=== PATIENT | male | born 1960 | race Caucasian/White ===

== ENCOUNTER 2016-12-04 12:49 | Inpatient (IN) ==
[2016-12-04] MEDS ORDERED: 0.9 % Sodium Chloride 1,000 ML IVC ONE (13:01)
[2016-12-04] MEDS ORDERED: 0.9 % Sodium Chloride 1,000 ML ONE (13:02)
--- NOTE | 2016-12-04 13:04 | Emergency Department Note ---
Disposition Clinical Impression: Syncope Qualifiers: Syncope type: unspecified Qualified Code(s): R55 - Syncope and collapse Acute renal failure Qualifiers: Acute renal failure type: unspecified Qualified Code(s): N17.9 - Acute kidney failure, unspecified Hypotension Qualifiers: Hypotension type: unspecified hypotension type Qualified Code(s): I95.9 - Hypotension, unspecified Disposition: Admitted As Inpatient Condition: Fair Time of Disposition: 14:24 General Adult HPI - General Chief complaint: ED General Medical Stated complaint: kidney failure Time Seen by Provider: 12/04/16 12:52 Source: patient, EMS Mode of arrival: EMS Limitations: no limitations Nursing Notes Reviewed: Yes Vital Signs Reviewed: Yes - History of Present Illness HPI Narrative: 56-year-old suffered a syncopal episode while at work today. Patient was noted to have a blood pressure of 80/42 and was found to be in renal failure at the [facility]. Patient has no history of renal failure. Patient was outside at a motocross this weekend states that he drank although he says today he hadn't or drink anything. Patient liter fluid prior to arrival and arrival here he is awake and alert. Pt Subjective Complaint: Syncope Onset (ago): Just [employer] [employer] Location: other (None) Pain Severity: moderate Improves with: nothing Worsens with: nothing Associated symptoms: Reports: denies other symptoms Treatments Prior to Arrival: none - Related Data Home Medications Medication Instructions Recorded Confirmed Amitriptyline [Elavil] 150 mg PO HS 12/04/16 12/04/16 Aspirin [Lo-Dose Aspirin EC] 81 mg PO DAILY 12/04/16 12/04/16 Atenolol [Tenormin] 75 mg PO DAILY 12/04/16 12/04/16 Atorvastatin Calcium [Lipitor] 80 mg PO HS 12/04/16 12/04/16 Carboxymethylcellulose Sodium 1 drop OP TID 12/04/16 12/04/16 [Refresh Tears] Furosemide [Lasix] 20 mg PO BID 12/04/16 12/04/16 Gabapentin [Neurontin] 1,200 mg PO BID 12/04/16 12/04/16 Insulin ASPART [NovoLOG] 10 unit SQ 1200 12/04/16 12/04/16 Insulin ASPART [Novolog Flexpen] 16 unit SQ 0800,1700 12/04/16 12/04/16 Lisinopril [Zestril] 10 mg PO DAILY 12/04/16 12/04/16 Metformin HCl [Metformin HCl ER] 2,000 mg PO QAM 12/04/16 12/04/16 Morphine Sulfate SR (12 HR) [MS 1 tab PO Q8HR 12/04/16 12/04/16 Contin] Ranitidine HCl [Acid [place]] 150 mg PO BID 12/04/16 12/04/16 Allergies Allergy/AdvReac Type Severity Reaction Status Date / Time Amoxicillin Allergy Anaphylaxis Verified 12/04/16 13:18 Erythromycin Base Allergy Anaphylaxis Verified 12/04/16 13:18 Penicillins Allergy Anaphylaxis Verified 12/04/16 13:18 pregabalin Allergy Anaphylaxis Verified 12/04/16 13:18 All systems ED: reviewed and negative except as stated. Constitutional: Denies: fever, chills, weakness, weight change Eyes: Denies: eye pain, eye discharge, vision change ENT ED: Denies: ear pain, throat pain, dental pain, hearing loss, epistaxis, congestion, dysphagia Cardiovascular: Reports: syncope. Denies: chest pain, palpitations, dyspnea on exertion, edema Respiratory: Denies: cough, dyspnea, wheezes, hemoptysis, stridor Gastrointestinal: Denies: abdominal pain, nausea, vomiting, diarrhea, constipation, hematemesis, melena, hematochezia Genitourinary: Denies: urgency, dysuria, frequency, hematuria Musculoskeletal: Denies: back pain, neck pain, arthralgia, myalgia Integumentary: Denies: rash, abrasion, lesions Neurological: Denies: headache, weakness, numbness, paresthesias, confusion, abnormal gait, vertigo Psychiatric: Denies: anxiety, depression, suicidal thoughts, homicidal thoughts , auditory hallucinations, visual hallucinations Endocrine: Denies: fatigue Hematological/Lymphatic: Denies: easy bleeding, easy bruising Allergic/Immunologic: Denies: facial swelling, urticaria Physical Exam - General Limitations: no limitations General appearance: alert, in no apparent distress - Head Head exam: atraumatic, normocephalic, normal inspection - Eye Eye exam: Present: normal appearance, PERRL, EOMI - ENT ENT exam: normal exam, normal oropharynx, mucous membranes moist - Neck Neck exam: Present: normal inspection, full ROM, trachea midline - Respiratory Respiratory exam: Present: normal lung sounds bilaterally - Cardiovascular Cardiovascular exam: Present: regular rate, normal rhythm, normal heart sounds - Abdominal Exam Abdominal exam: Present: soft, Non-Tender. Absent: tenderness, distention, guarding, rebound, rigidity - Extremities Exam Extremities exam: Present: normal inspection, full ROM. Absent: tenderness, pedal edema - Expanded Lower Extremity Exam Neurovascular/Tendon exam: Absent: motor deficit, sensory deficit, tendon deficit Gait: observed and normal - Back Exam Back exam: Present: normal inspection, full ROM. Absent: tenderness - Neurological Exam Neurological exam: Present: alert, oriented X3 - Psychiatric Psychiatric exam: Present: normal affect, normal mood - Skin Skin exam: Present: warm, dry, intact, normal color Course - Reevaluation(s) Reevaluation #1: Laboratory from the [facility] includes a calcium of 9.2 lorica 97 CO2 24 creatinine 7.67 glucose 188 potassium 5.2 sodium 135 be 143 white count of 10.5 hemoglobin 15 9 hematocrit 48.0 platelets are 205,000 CT of the head showed no evidence of intracranial hemorrhage. Unchanged subcentimeter low density area in the deep white matter of the right frontal lobe likely representing a remote lacunar infarct. EKG showed a sinus rhythm without acute change. Troponin was 0.01 PTT was 23.2, INR was 1 Time: 13:05 Reevaluation #2: 56-year-old with no previous history of renal failure who comes in after a syncopal episode with the findings of renal failure creatinine above 7. The patient's initial blood pressure was 79 over palp he was given a couple liters of fluid with improving to the low 90s systolic. Appears that he is actually volume depleted. He is on Lasix which may have dried him out too much. He states he doesn't have a history of CHF. Time: 14:22 - Consultations Consultation #1: Discussed with Kavin mcbride. Time: 14:22 Consultation #2: I discussed the case with Dr. العراقي, the patient's blood pressure has been running in the 80s. Dr. العراقي recommends fluids does not recommend pressors at this time. Patient is going to be seen by her now in the ER as we are waiting on a bed. Time: 18:02 Vital Signs Temperature 98.3 F 12/04/16 12:52 Pulse Rate 81 12/04/16 12:52 Respiratory Rate 18 12/04/16 12:52 Blood Pressure 79/49 12/04/16 12:52 O2 Sat by Pulse Oximetry 94 12/04/16 12:52 Temperature 98.3 F 12/04/16 12:52 Pulse Rate 76 12/04/16 18:13 Respiratory Rate 18 12/04/16 19:51 Blood Pressure 85/52 12/04/16 19:51 O2 Sat by Pulse Oximetry 97 12/04/16 18:13 Oxygen Delivery Oxygen Delivery Nasal Cannula Medical Decision Making - Lab Data Result diagrams: 12/04/16 16:35 12/04/16 16:35 Lab Results 12/04/16 12/04/16 12/04/16 Range/Units 16:35 16:35 16:35 WBC 13.3 H (4.3-11.1) K/mcL RBC 4.90 (4.19-5.50) M/mcL Hgb 15.4 (12.9-16.9) g/dL Hct 47.2 (37.5-50.1) % MCV 96.3 (83.0-100.0) fL MCH 31.4 (28.0-33.3) pg MCHC 32.6 (31.6-35.5) g/dL RDW 13.1 (11.5-14.5) % Plt Count 205 (140-400) K/mcL MPV 10.3 (9.4-12.4) fL Immature Gran % 0.3 (0-4) % Seg Neutrophils % 60.8 % Lymphocytes % 23.4 % Monocytes % 12.9 % Eosinophils % 2.2 % Basophils % 0.4 % Neutrophils # 8.1 (1.6-8.9) K/mcL Lymphocytes # 3.1 (0.6-4.6) K/mcL Monocytes # 1.7 H (0.0-1.3) K/mcL Eosinophils # 0.3 (0.0-0.6) K/mcL Basophils # 0.1 (0.0-0.2) K/mcL PT 10.6 (9.4-12.1) Seconds INR 1.0 APTT 27.1 (26.0-36.0) Seconds Sodium (136-145) mEq/L Potassium (3.5-4.5) mEq/L Chloride (98-109) mEq/L Carbon Dioxide (19-29) mEq/L BUN (8-26) mg/dL Creatinine (0.72-1.25) mg/dL Est GFR ( Amer) (> 60) Est GFR (Non-Af Amer) (> 60) BUN/Creatinine Ratio (6-26) Glucose (70-99) mg/dL Est Mean Plasma Glucose mg/dl Hemoglobin A1c ( - 5.6) % Calculated Osmolality (280-300) Uric Acid (3.5-7.2) mg/dL Calcium (8.6-10.8) mg/dL Magnesium 1.9 (1.6-2.6) mg/dL Creatine Kinase (30-200) Units/L Troponin I (0-0.03) ng/mL B-Natriuretic Peptide (0-100) pg/mL Triglycerides 171 H (< 150) mg/dL Cholesterol 96 (< 200) mg/dL LDL Cholesterol, Calc 32 (0-99) mg/dL VLDL Cholesterol, Calc 34 H (< 31) mg/dL HDL Cholesterol 30 L (40-59) mg/dL Cholesterol/HDL Ratio 3.2 (0-4.9) Urine Color (Yellow) Urine Clarity (Clear) Urine pH (5.0-8.0) pH Units Ur Specific [place] (1.010-1.025) Urine Protein (Neg-Trace) mg/dL Urine Glucose (UA) (Normal) mg/dL Urine Ketones (Negative) mg/dL Urine Blood (Negative) Urine Nitrite (Negative) Urine Bilirubin (Negative) Urine Urobilinogen (Normal) mg/dL Ur Leukocyte Esterase (Negative) Urine Microscopic RBC (0-3) per hpf Urine Microscopic WBC (0-3) per hpf Ur Squamous Epith Cells (None-Few) per lpf Amorphous Sediment (Few) Urine Bacteria (None-Few) per hpf Ur Culture Indicated? (NO) Urine Creatinine mg/dL Urine Sodium mEq/L Urine Opiates Screen (Loocvg=533) ng/mL Ur Barbiturates Screen (Myvgmm=664) ng/mL Ur Phencyclidine Scrn (Cutoff=25) ng/mL Ur Amphetamines Screen (Hdtnaw=0735) ng/mL U Benzodiazepines Scrn (Uchsqp=185) ng/mL Urine Cocaine Screen (Cutoff= 300) ng/mL U Marijuana (THC) Screen (Cutoff = 50) ng/mL Specimen Rejected 12/04/16 12/04/16 12/04/16 Range/Units 16:35 16:35 16:35 WBC (4.3-11.1) K/mcL RBC (4.19-5.50) M/mcL Hgb (12.9-16.9) g/dL Hct (37.5-50.1) % MCV (83.0-100.0) fL MCH (28.0-33.3) pg MCHC (31.6-35.5) g/dL RDW (11.5-14.5) % Plt Count (140-400) K/mcL MPV (9.4-12.4) fL Immature Gran % (0-4) % Seg Neutrophils % % Lymphocytes % % Monocytes % % Eosinophils % % Basophils % % Neutrophils # (1.6-8.9) K/mcL Lymphocytes # (0.6-4.6) K/mcL Monocytes # (0.0-1.3) K/mcL Eosinophils # (0.0-0.6) K/mcL Basophils # (0.0-0.2) K/mcL PT (9.4-12.1) Seconds INR APTT (26.0-36.0) Seconds Sodium 136 (136-145) mEq/L Potassium 5.2 H (3.5-4.5) mEq/L Chloride 100 (98-109) mEq/L Carbon Dioxide 24 (19-29) mEq/L BUN 47 H (8-26) mg/dL Creatinine 7.85 H (0.72-1.25) mg/dL Est GFR ( Amer) 9 L (> 60) Est GFR (Non-Af Amer) 7 L (> 60) BUN/Creatinine Ratio 6 (6-26) Glucose 84 (70-99) mg/dL Est Mean Plasma Glucose mg/dl Hemoglobin A1c ( - 5.6) % Calculated Osmolality 293 (280-300) Uric Acid 10.3 H (3.5-7.2) mg/dL Calcium 9.2 (8.6-10.8) mg/dL Magnesium (1.6-2.6) mg/dL Creatine Kinase 223 H (30-200) Units/L Troponin I 0.01 (0-0.03) ng/mL B-Natriuretic Peptide 64 (0-100) pg/mL Triglycerides (< 150) mg/dL Cholesterol (< 200) mg/dL LDL Cholesterol, Calc (0-99) mg/dL VLDL Cholesterol, Calc (< 31) mg/dL HDL Cholesterol (40-59) mg/dL Cholesterol/HDL Ratio (0-4.9) Urine Color (Yellow) Urine Clarity (Clear) Urine pH (5.0-8.0) pH Units Ur Specific [place] (1.010-1.025) Urine Protein (Neg-Trace) mg/dL Urine Glucose (UA) (Normal) mg/dL Urine Ketones (Negative) mg/dL Urine Blood (Negative) Urine Nitrite (Negative) Urine Bilirubin (Negative) Urine Urobilinogen (Normal) mg/dL Ur Leukocyte Esterase (Negative) Urine Microscopic RBC (0-3) per hpf Urine Microscopic WBC (0-3) per hpf Ur Squamous Epith Cells (None-Few) per lpf Amorphous Sediment (Few) Urine Bacteria (None-Few) per hpf Ur Culture Indicated? (NO) Urine Creatinine mg/dL Urine Sodium mEq/L Urine Opiates Screen (Kwfpjc=106) ng/mL Ur Barbiturates Screen (Chosom=820) ng/mL Ur Phencyclidine Scrn (Cutoff=25) ng/mL Ur Amphetamines Screen (Mvnxug=4843) ng/mL U Benzodiazepines Scrn (Mvlnxv=817) ng/mL Urine Cocaine Screen (Cutoff= 300) ng/mL U Marijuana (THC) Screen (Cutoff = 50) ng/mL Specimen Rejected 12/04/16 12/04/16 12/04/16 Range/Units 16:35 16:35 18:45 WBC (4.3-11.1) K/mcL RBC (4.19-5.50) M/mcL Hgb (12.9-16.9) g/dL Hct (37.5-50.1) % MCV (83.0-100.0) fL MCH (28.0-33.3) pg MCHC (31.6-35.5) g/dL RDW (11.5-14.5) % Plt Count (140-400) K/mcL MPV (9.4-12.4) fL Immature Gran % (0-4) % Seg Neutrophils % % Lymphocytes % % Monocytes % % Eosinophils % % Basophils % % Neutrophils # (1.6-8.9) K/mcL Lymphocytes # (0.6-4.6) K/mcL Monocytes # (0.0-1.3) K/mcL Eosinophils # (0.0-0.6) K/mcL Basophils # (0.0-0.2) K/mcL PT (9.4-12.1) Seconds INR APTT (26.0-36.0) Seconds Sodium (136-145) mEq/L Potassium (3.5-4.5) mEq/L Chloride (98-109) mEq/L Carbon Dioxide (19-29) mEq/L BUN (8-26) mg/dL Creatinine 7.87 H (0.72-1.25) mg/dL Est GFR ( Amer) 9 L (> 60) Est GFR (Non-Af Amer) 7 L (> 60) BUN/Creatinine Ratio (6-26) Glucose (70-99) mg/dL Est Mean Plasma Glucose 283 mg/dl Hemoglobin A1c 11.5 H ( - 5.6) % Calculated Osmolality (280-300) Uric Acid (3.5-7.2) mg/dL Calcium (8.6-10.8) mg/dL Magnesium (1.6-2.6) mg/dL Creatine Kinase (30-200) Units/L Troponin I (0-0.03) ng/mL B-Natriuretic Peptide (0-100) pg/mL Triglycerides (< 150) mg/dL Cholesterol (< 200) mg/dL LDL Cholesterol, Calc (0-99) mg/dL VLDL Cholesterol, Calc (< 31) mg/dL HDL Cholesterol (40-59) mg/dL Cholesterol/HDL Ratio (0-4.9) Urine Color (Yellow) Urine Clarity (Clear) Urine pH (5.0-8.0) pH Units Ur Specific [place] (1.010-1.025) Urine Protein (Neg-Trace) mg/dL Urine Glucose (UA) (Normal) mg/dL Urine Ketones (Negative) mg/dL Urine Blood (Negative) Urine Nitrite (Negative) Urine Bilirubin (Negative) Urine Urobilinogen (Normal) mg/dL Ur Leukocyte Esterase (Negative) Urine Microscopic RBC (0-3) per hpf Urine Microscopic WBC (0-3) per hpf Ur Squamous Epith Cells (None-Few) per lpf Amorphous Sediment (Few) Urine Bacteria (None-Few) per hpf Ur Culture Indicated? (NO) Urine Creatinine mg/dL Urine Sodium mEq/L Urine Opiates Screen Positive H (Jviaar=971) ng/mL Ur Barbiturates Screen Negative (Pnlmrd=160) ng/mL Ur Phencyclidine Scrn Negative (Cutoff=25) ng/mL Ur Amphetamines Screen Negative (Ylojrr=1031) ng/mL U Benzodiazepines Scrn Negative (Ijdadk=074) ng/mL Urine Cocaine Screen Negative (Cutoff= 300) ng/mL U Marijuana (THC) Screen Negative (Cutoff = 50) ng/mL Specimen Rejected 12/04/16 12/04/16 12/04/16 Range/Units 18:45 18:45 18:45 WBC (4.3-11.1) K/mcL RBC (4.19-5.50) M/mcL Hgb (12.9-16.9) g/dL Hct (37.5-50.1) % MCV (83.0-100.0) fL MCH (28.0-33.3) pg MCHC (31.6-35.5) g/dL RDW (11.5-14.5) % Plt Count (140-400) K/mcL MPV (9.4-12.4) fL Immature Gran % (0-4) % Seg Neutrophils % % Lymphocytes % % Monocytes % % Eosinophils % % Basophils % % Neutrophils # (1.6-8.9) K/mcL Lymphocytes # (0.6-4.6) K/mcL Monocytes # (0.0-1.3) K/mcL Eosinophils # (0.0-0.6) K/mcL Basophils # (0.0-0.2) K/mcL PT (9.4-12.1) Seconds INR APTT (26.0-36.0) Seconds Sodium (136-145) mEq/L Potassium (3.5-4.5) mEq/L Chloride (98-109) mEq/L Carbon Dioxide (19-29) mEq/L BUN (8-26) mg/dL Creatinine (0.72-1.25) mg/dL Est GFR ( Amer) (> 60) Est GFR (Non-Af Amer) (> 60) BUN/Creatinine Ratio (6-26) Glucose (70-99) mg/dL Est Mean Plasma Glucose mg/dl Hemoglobin A1c ( - 5.6) % Calculated Osmolality (280-300) Uric Acid (3.5-7.2) mg/dL Calcium (8.6-10.8) mg/dL Magnesium (1.6-2.6) mg/dL Creatine Kinase (30-200) Units/L Troponin I (0-0.03) ng/mL B-Natriuretic Peptide (0-100) pg/mL Triglycerides (< 150) mg/dL Cholesterol (< 200) mg/dL LDL Cholesterol, Calc (0-99) mg/dL VLDL Cholesterol, Calc (< 31) mg/dL HDL Cholesterol (40-59) mg/dL Cholesterol/HDL Ratio (0-4.9) Urine Color Yellow (Yellow) Urine Clarity Clear (Clear) Urine pH 5.0 (5.0-8.0) pH Units Ur Specific [place] >= 1.030 H (1.010-1.025) Urine Protein 100 H (Neg-Trace) mg/dL Urine Glucose (UA) Normal (Normal) mg/dL Urine Ketones Trace H (Negative) mg/dL Urine Blood Negative (Negative) Urine Nitrite Negative (Negative) Urine Bilirubin Small H (Negative) Urine Urobilinogen Normal (Normal) mg/dL Ur Leukocyte Esterase Negative (Negative) Urine Microscopic RBC 0-3 (0-3) per hpf Urine Microscopic WBC 0-3 (0-3) per hpf Ur Squamous Epith Cells Moderate H (None-Few) per lpf Amorphous Sediment Few (Few) Urine Bacteria Moderate H (None-Few) per hpf Ur Culture Indicated? NO (NO) Urine Creatinine 258 mg/dL Urine Sodium 21.0 mEq/L Urine Opiates Screen (Iasmql=539) ng/mL Ur Barbiturates Screen (Toddjd=475) ng/mL Ur Phencyclidine Scrn (Cutoff=25) ng/mL Ur Amphetamines Screen (Kcjmqq=1679) ng/mL U Benzodiazepines Scrn (Abjyvt=412) ng/mL Urine Cocaine Screen (Cutoff= 300) ng/mL U Marijuana (THC) Screen (Cutoff = 50) ng/mL Specimen Rejected Volume
[2016-12-04] MEDS: 0.9 % Sodium Chloride 1,000 ML IVC SCH ×2 (15:00→19:06)
[2016-12-04] MEDS ORDERED: Aspirin Enteric Coated 81 MG Tablet PO SCH (15:15)
[2016-12-04] MEDS ORDERED: Aspirin 81 MG TAB.CHEW PO STA (15:16)
[2016-12-04] MEDS ORDERED: Acetaminophen 325 MG TABLET PO PRN (15:17)
[2016-12-04] MEDS ORDERED: *HR* Morphine 2 MG/ML SYRINGE IVP PRN (15:17)
[2016-12-04] MEDS ORDERED: *HR* HYDROcodone/Acet 5/325 mg TABLET PO PRN (15:17)
[2016-12-04] MEDS ORDERED: Naloxone 0.4 MG/ML INJ IVP PRN (15:17)
[2016-12-04] MEDS ORDERED: D5% in Water 1,000 ML IVC PRN (15:33)
[2016-12-04] MEDS ORDERED: *HR* Dextrose 50 % in Water (Syg) 50 ML SYRINGE IVP PRN (15:33)
[2016-12-04] MEDS ORDERED: Dextrose Gel 15 GM PO PRN ×2 (15:33)
--- NOTE | 2016-12-04 15:36 | Internal Med History&Physical ---
<Kavin Chavez - Last Filed: 12/04/16 19:02> Date of Encounter: 12/04/16 Time of Encounter: 14:30 Assessment and Plan (1) Symptoms of cerebrovascular accident (CVA) Current visit: Yes Status: Acute Patient presents with complaint of syncope at work today. Upon admission to the ED, he was also found to have a creatinine level of 7.67 and GFR of 7. On examination, the patient is altered and slurring his speech. His reports that this is a new onset and not his baseline. CT of the head/brain taken at the [facility] today shows no extra-axial fluid collections and no evidence of intracranial hemorrhage. There is a stable subcentimeter low-density area in the deep white matter of the right frontal lobe likely representing an area of remote lacunar infarct. NIHSS protocol ordered with neuro checks, padding added to patient's bed rails, elevated HOB, PO aspirin, and NPO status until an ordered bedside swallow evaluation is passed. MRI of the head/brain w/o contrast ordered stat. Bilateral carotid Doppler duplex imaging and echocardiogram ordered stat. Will place order for neuro consult based on MRI results. Patient to be monitored closely for signs of neurological decline. (2) Syncope Current visit: Yes Status: Acute Patient presents in the ED with report of becoming syncopal at work today. The patient reports that he has not been feeling well for the past two days following a two-day event outdoors when he feels he became dehydrated. Patient to be placed as falls precautions/up with assist/bed rest with bathroom privileges with assist only due to current weakness and syncope. Orthostatic BPs and vital signs ordered. Echocardiogram and bilateral carotid Doppler duplex imaging ordered. 2L IV fluids administered in the ED and IV 0.9 NS at 100 mL/HR to be continued. Qualifiers: Syncope type: unspecified Qualified Code(s): R55 - Syncope and collapse (3) Hypotension Current visit: Yes Status: Acute Patient presents with acute hypotension of 79/36 in the ED. Patient reports that his BP normally runs 160/75 when he takes it at home. Hypotension could be due to patient's current report of dehydration as well as current CVA and orthostatic hypotension symptoms. Will monitor patient's vital signs and hold his Atenolol and lisinopril for now due to hypotension and to allow for permissive hypertension related to current CVA symptoms. Will also hold patient' s Lasix for now. Patient placed on continuous telemetry and falls/safety precautions. Qualifiers: Hypotension type: unspecified hypotension type Qualified Code(s): I95.9 - Hypotension, unspecified (4) Acute renal failure Current visit: Yes Status: Acute Patient presents with acute renal failure which he denies a previous history of. He does report that his mother had CKD but he has never had renal issues before. ARF may be due to patient's current feeling of being dehydrated. New labs ordered stat including creatinine and GFR. Patient received 2L of IV NS in the ED due to feeling dehydrated. Will continue IV fluids at 100mL/HR, monitor I &O and daily weight, and monitor renal function in follow-up labs. Will use IV fluids judiciously and hold patient's Lasix for now due to renal function and hypotension. Nephrology consult ordered and placed in the ED. Qualifiers: Acute renal failure type: unspecified Qualified Code(s): N17.9 - Acute kidney failure, unspecified (5) Generalized weakness Current visit: Yes Status: Acute Patient presents with generalized weakness for the past 48 hours. He states he was at a two-day motocross event and out in the sun. He felt as if he wasn't hydrated enough. Patient received 2L of IV fluids in the ED and will continue 0.9 NS at 100 mL/HR. Patient placed as falls precautions/up with assist/bed rest with bathroom privileges with assist only due to syncopal episode, weakness , and slightly AMS. (6) Diabetes Current visit: Yes Status: Chronic Patient presents with acute diabetes controlled with oral hypoglycemics as well as insulin. A1c ordered. Blood glucose checks ACHS. Will continue patient's schedule insulin and add low-dose correction insulin sliding scale and hypoglycemia protocol. Qualifiers: Diabetes mellitus type: type 2 Diabetes mellitus complication status: with unspecified complications Diabetes mellitus wood heel cementer insulin use: with wood heel cementer use Qualified Code(s): E11.8 - Type 2 diabetes mellitus with unspecified complications; Z79.4 - [facility] (current) use of insulin (7) HTN (hypertension) Current visit: Yes Status: Chronic Patient presents with a medical history of chronic hypertension but is currently hypotensive on this admission with BP of 76/36. Will monitor patient and vital signs and hold patient's lisinopril and atenolol due to current hypotension as well as to permit permissive hypertension based on patient's current CVA symptoms. Qualifiers: Hypertension type: essential hypertension Qualified Code(s): I10 - Essential (primary) hypertension (8) HLD (hyperlipidemia) Current visit: Yes Status: Chronic Patient presents with history of chronic hyperlipidemia. Lipid panel ordered. Will continue patient's Lipitor. Qualifiers: Hyperlipidemia type: pure hypercholesterolemia Qualified Code(s): E78.00 - Pure hypercholesterolemia, unspecified; E78.0 - Pure hypercholesterolemia (9) DVT prophylaxis Current visit: Yes Status: Acute Patient to be placed on DVT prophylaxis due to current admission protocol, symptoms, and bed rest status. Heparin 5,000 units SQ Q8 ordered. Internal Medicine - H&P: HPI Chief complaint: Syncope Admitted From: Emergency Dept Plans for Post Hospital Care: Home History of present illness: Mr. Barriga is a 56 year old male presents from the ED with chief complaint of passing out at work today. Patient reports similar symptoms happened a week to 10 days ago but did not result in syncope. On examination patient is slightly somnolent and slurring his speech which his states is not his baseline. She reports he was at a [employer] competition Saturday and Saturday in the hot sun and may become dehydrated. Saturday evening following the event, she states he became unstable and ambulation, reported tunnel vision and blurry vision, complained of extreme fatigue, and was unable to hold things in his hands. Patient appears slightly confused. [facility] without contrast showed no evidence of intracranial hemorrhage, but a stable subcentimeter low-density area in the deep white matter of the right frontal lobe likely representing a remote lacunar infarct. MRI of the head/brain without contrast ordered. Patient's past medical history includes diabetes, hypertension, hyperlipidemia, psoriasis, ulcerative colitis, diverticulosis, and renal calculi. Patient is a moderate risk for further morbidity based on current symptoms and risk factors and placed as inpatient status with orders for repeat EKG stat, echocardiogram, bilateral carotid Doppler duplex imaging, NIHSS protocol with neuro checks due to current CVA- type symptoms, continuous cardiac telemetry, supplemental O2 with continuous SaO2 monitoring, nothing by mouth status until bedside dysphagia screen passed, and falls/syncope precautions due to syncope. Aspirin therapy administered in the ED and will be continued. Upon admission, patient was hypotensive with BP of 76/36 so we will hold patient's BP medications due to current hypotension and to allow for permissive hypertension based on his CVA symptoms. Nephrology consult ordered and placed in the ED. Patient is to be monitored closely for signs of neurological decline as well as increasing cardiac and/or respiratory distress. Time spent with patient >40 minutes. Past Med Surg Social Fam HX - Past Medical History Source: patient Medical history: diabetes, hyperlipidemia, hypertension Psychiatric history: no psych history - Social History Smoking Status: Former smoker Packs per day: 1/2 PPD - Reports quitting 22 years ago Smokeless Tobacco Status: No Alcohol use: none Drug use: none Occupational status: employed Current living situation: Home, With Family Activity Level: Independent ambulation Recent Out of Country Travel Within the Last 8 Weeks: No Exposure or Possible Exposure to Illness During Travel: No - Family History Father Race: Family Member Ethnicity: Non- Living Status: Age at : 71 Cause of : Metastatic cancer Hx Family Cancer: Yes (Prostate cancer with mets) Mother Race: Family Member Ethnicity: Non- Living Status: Age at : 70 Cause of : CKD Hx Family Cardiac Disorders: Yes (HD, ME, HTN) Hx Family Genitourinary Disorders: Yes (CKD) Brother Race: Family Member Ethnicity: Non- Living Status: Age at : 22 Cause of : Accident Internal Medicine - H&P: Meds Amitriptyline [Elavil] 150 mg PO HS 12/04/16 [History] Aspirin [Lo-Dose Aspirin EC] 81 mg PO DAILY 12/04/16 [History] Atenolol [Tenormin] 75 mg PO DAILY 12/04/16 [History] Atorvastatin Calcium [Lipitor] 80 mg PO HS 12/04/16 [History] Carboxymethylcellulose Sodium [Refresh Tears] 1 drop OP TID 12/04/16 [History] Furosemide [Lasix] 20 mg PO BID 12/04/16 [History] Gabapentin [Neurontin] 1,200 mg PO BID 12/04/16 [History] Insulin ASPART [NovoLOG] 10 unit SQ 1200 12/04/16 [History] Insulin ASPART [Novolog Flexpen] 16 unit SQ 0800,1700 12/04/16 [History] Lisinopril [Zestril] 10 mg PO DAILY 12/04/16 [History] Metformin HCl [Metformin HCl ER] 2,000 mg PO QAM 12/04/16 [History] Morphine Sulfate SR (12 HR) [MS Contin] 1 tab PO Q8HR 12/04/16 [History] Ranitidine HCl [Acid Coil Connector Repairer] 150 mg PO BID 12/04/16 [History] Allergies Amoxicillin Allergy (Verified 12/04/16 13:18) Anaphylaxis Erythromycin Base Allergy (Verified 12/04/16 13:18) Anaphylaxis Penicillins Allergy (Verified 12/04/16 13:18) Anaphylaxis pregabalin Allergy (Verified 12/04/16 13:18) Anaphylaxis All Systems PM: A 10-system review of systems was performed and is negative for pertinent findings except as documented above in the HPI. - Constitutional Constitutional: as per HPI, fatigue, weakness - EENT Eyes: as per HPI, blurry vision, tunnel vision Ears: no ear discharge, no ear pain, no tinnitus Nose, mouth and throat: no dysphagia, no nasal discharge, no neck pain, no sore throat - Breasts Breasts: as per HPI - Cardiovascular Cardiovascular ROS IM: as per HPI, dyspnea on exertion, no chest pain, no diaphoresis, no dyspnea, no lightheadedness, no palpitations, no syncope - Respiratory Respiratory: no cough, no dyspnea, no wheezing, no excessive phlegm production - Gastrointestinal Gastrointestinal: no abdominal pain, no diarrhea, no hematemesis, no hematochezia, no melena, no nausea, no vomiting - Genitourinary Genitourinary ROS male: as per HPI - Musculoskeletal Musculoskeletal ROS IM: no numbness, no tingling - Integumentary Integumentary IM: no rash, no unusual bruising - Neurological Neurological ROS: abnormal gait (Unsteady gait), abnormal speech (Slurring speech since Saturday), disequilibrium, dizziness, weakness - Psychiatric Psychiatric: as per HPI, confusion - Endocrine Endocrine IM: as per HPI, fatigue - Hematologic/Lymphatic Hematologic/Lymphatic: no easy bruising - Allergic/Immunologic Allergic/Immunologic: as per HPI - Constitutional Vitals: Temp Pulse Resp BP Pulse Ox 98.3 F 82 18 90/48 97 12/04/16 12:52 12/04/16 14:13 12/04/16 14:13 12/04/16 14:13 12/04/16 14:13 General appearance: Present: cooperative, A&O X 2, morbidly obese Exam: On examination, patient appears mildly confused with slurred speech which his states is a new onset since Saturday. Patient is neurologically intact with some mild difficulty with coordination with [id number] exam. - Head Head exam: Present: atraumatic, normocephalic - Eye Eye exam: Present: PERRL, conjuntiva pink, sclera anicteric Pupils: Present: PERRL - ENT ENT exam: Present: normal exam, normal external ear exam - Neck Neck exam general surgery: Present: normal inspection, supple, trachea midline - Respiratory Respiratory exam: Present: CTAB. Absent: accessory muscle use, rales, rhonchi, wheezes - Cardiovascular Cardiovascular exam: Present: RRR, +S1, +S2. Absent: diastolic murmur, gallop, rubs, systolic murmur - GI/Abdominal GI/Abdominal exam: Present: normal bowel sounds, soft, no peritoneal signs. Absent: distended, tenderness - Rectal Rectal exam: Present: deferred - Additional comments: exam deferred. - Extremities Exam Extremities exam: Present: warm, radial pulses palpable and symmetrical. Absent : calf tenderness, cyanotic, pedal edema - Back Exam Back exam: Present: normal inspection - Neurological Exam Neurological exam: Present: altered, reflexes normal, strengths equal and symetr throughout, speech deficit (Slurring present) - Psychiatric Psychiatric exam: Present: normal affect, normal mood - Skin Skin exam: Present: dry, intact Internal Med - H&P Results - Labs CBC & Chem 7: 12/04/16 16:35 12/04/16 16:35 - EKG Data EKG shows normal: sinus rhythm Rate: normal - EKG Data Prior EKG available for review: no Interpretation IM: normal EKG EKG comments: 12/04/16 15:47 EKG dated today at the [place] shows normal sinus rhythm and normal ECG. <Mekhi Mcduffie - Last Filed: 12/04/16 19:42> Date of Encounter: 12/04/16 Internal Medicine - H&P: HPI History of present illness: Mr. Barriga is a 56 year old male All Systems PM: A 10-system review of systems was performed and is negative for pertinent findings except as documented above in the HPI. - Constitutional Vitals: Temp Pulse Resp BP Pulse Ox 98.3 F 76 18 95/62 97 12/04/16 12:52 12/04/16 18:13 12/04/16 18:13 12/04/16 18:13 12/04/16 18:13 Internal Med - H&P Results - Labs CBC & Chem 7: 12/04/16 16:35 12/04/16 16:35 - Attending Attestation I have personally performed a face to face evaluation on this patient. I have reviewed and agree with the care plan. History and Exam by me shows: Mr. Barriga is currently admitted for syncope and acute renal failure. He is feeling OK at this time, just uncomfortable with sheppard Exam Alert. Comfortable Heart reg No wheeze No edema Agree with plan as outlined above.
[2016-12-04 16:44] LABS: Basophils # 0.1 K/mcL (0.0-0.2); Basophils % 0.4 %; Eosinophils # 0.3 K/mcL (0.0-0.6); Eosinophils % 2.2 %; Hematocrit 47.2 % (37.5-50.1); Hemoglobin 15.4 g/dL (12.9-16.9); Immature Granulocytes % 0.3 % (0-4); Lymphocytes # 3.1 K/mcL (0.6-4.6); Lymphocytes % 23.4 %; Mean Corpuscular HGB Conc 32.6 g/dL (31.6-35.5); Mean Corpuscular Hemoglobin 31.4 pg (28.0-33.3); Mean Corpuscular Volume 96.3 fL (83.0-100.0); Mean Platelet Volume 10.3 fL (9.4-12.4); Monocytes # 1.7 K/mcL (0.0-1.3); Monocytes % 12.9 %; Neutrophils # 8.1 K/mcL (1.6-8.9); Platelet Count 205 K/mcL (140-400); Red Cell Distribution Width 13.1 % (11.5-14.5); Segmented Neutrophils % 60.8 %
[2016-12-04 16:49] LABS: Prothrombin Time 10.6 Seconds (9.4-12.1)
[2016-12-04 16:52] LABS: Activated Partial Thrombo Time 27.1 Seconds (26.0-36.0)
[2016-12-04 16:57] LABS: Calcium 9.2 mg/dL (8.6-10.8); Hemoglobin A1C 11.5 %; Potassium 5.2 mEq/L (3.5-4.5)
[2016-12-04 16:58] LABS: Chol/HDL Ratio 3.2 (0-4.9); Magnesium 1.9 mg/dL (1.6-2.6)
[2016-12-04] MEDS ORDERED: INSULIN ASPART 16 UNIT SQ SCH (17:00)
--- NOTE | 2016-12-04 17:40 | Nephrology Consult Note ---
<Mars Valdovinos - Last Filed: 12/04/16 20:11> Date of Encounter: 12/04/16 Medications and Allergies Amitriptyline [Elavil] 150 mg PO HS 12/04/16 [History] Aspirin [Lo-Dose Aspirin EC] 81 mg PO DAILY 12/04/16 [History] Atenolol [Tenormin] 75 mg PO DAILY 12/04/16 [History] Atorvastatin Calcium [Lipitor] 80 mg PO HS 12/04/16 [History] Carboxymethylcellulose Sodium [Refresh Tears] 1 drop OP TID 12/04/16 [History] Furosemide [Lasix] 20 mg PO BID 12/04/16 [History] Gabapentin [Neurontin] 1,200 mg PO BID 12/04/16 [History] Insulin ASPART [NovoLOG] 10 unit SQ 1200 12/04/16 [History] Insulin ASPART [Novolog Flexpen] 16 unit SQ 0800,1700 12/04/16 [History] Lisinopril [Zestril] 10 mg PO DAILY 12/04/16 [History] Metformin HCl [Metformin HCl ER] 2,000 mg PO QAM 12/04/16 [History] Morphine Sulfate SR (12 HR) [MS Contin] 1 tab PO Q8HR 12/04/16 [History] Ranitidine HCl [Acid Acetylene Cylinder Packing Mixer] 150 mg PO BID 12/04/16 [History] Amoxicillin Allergy (Verified 12/04/16 13:18) Anaphylaxis Erythromycin Base Allergy (Verified 12/04/16 13:18) Anaphylaxis Penicillins Allergy (Verified 12/04/16 13:18) Anaphylaxis pregabalin Allergy (Verified 12/04/16 13:18) Anaphylaxis Exam - Vital Signs Vital signs: Initial Vital Signs Temp Pulse Resp BP Pulse Ox 98.3 F 81 18 79/49 94 12/04/16 12:52 12/04/16 12:52 12/04/16 12:52 12/04/16 12:52 12/04/16 12:52 Vital Signs - Last 8 Hours Resp BP 12/04/16 19:51 18 85/52 Results - Lab Results 12/04/16 16:35 12/04/16 16:35 Most recent lab results Calcium 9.2 mg/dL (8.6-10.8) 12/04/16 16:35 Magnesium 1.9 mg/dL (1.6-2.6) 12/04/16 16:35 Urine Creatinine 258 mg/dL 12/04/16 18:45 Urine Sodium 21.0 mEq/L 12/04/16 18:45 Consult Discharge Plan - Plan [facility]errals: [facility]Primary Care Provider[facility] - <Miko Hardy - Last Filed: 12/05/16 18:17> Date of Encounter: 12/04/16 Time of Encounter: 17:35 Assessment and Plan (1) KARISSA (acute kidney injury) Current Visit: Yes Status: Acute Elevated Scr in the setting of hypotension and syncopal event highly suspicious for per-renal azotemia Agree with aggressive volume repletion with continued NS Hold all nephrotoxins and antihypertensives for now No acute indication for DIRECTOR OF THERAPY SERVICES at this time Will check uric acid, CPK levels Will check urine for UA, sodium, creatnine and eosinophils Place sheppard now Obtain US of kidney now (2) Hyperkalemia Current Visit: Yes Status: Acute (3) Syncope Current Visit: Yes Status: Acute Qualifiers: Syncope type: unspecified Qualified Code(s): R55 - Syncope and collapse History of Present Illness - Reason for Consult Consult date: 12/04/16 Acute Kidney Injury Requesting physician: Mars Valdovinos - History of Present Illness 56 y o male with PMH of DM, HTN and high chol admitted after syncopal episode at work. He was found with SCr of 7.87, GFR 7, no baseline available to us but denies any history of renal disease. He does have family history of renal disease in his mother however. He was also noted to have low BP readings in the 70-80s systolic. He was apparently out in the sun this weekend for an event and felt dehydrated. he has received 2 liters of NS so far in the ED. Workup also being done for altered mental status and slurred speech. He reports no UOP since around 10am today. Past Med Surg Social Fam HX - Past Medical History Medical history: diabetes, hyperlipidemia, hypertension Psychiatric history: no psych history - Social History Smoking Status: Former smoker Packs per day: 1/2 PPD - Reports quitting 22 years ago Smokeless Tobacco Status: No Alcohol use: none Drug use: none - Family History Father Race: Family Member Ethnicity: Non- Living Status: Age at : 71 Cause of : Metastatic cancer Hx Family Cancer: Yes (Prostate cancer with mets) Mother Race: Family Member Ethnicity: Non- Living Status: Age at : 70 Cause of : CKD Hx Family Cardiac Disorders: Yes (HD, DE, HTN) Hx Family Genitourinary Disorders: Yes (CKD) Brother Race: Family Member Ethnicity: Non- Living Status: Age at : 22 Cause of : Accident Review of Systems All Systems: reviewed and no additional remarkable complaints except as stated ( 10 systems reviewed) Exam - Vital Signs Vital signs: Initial Vital Signs Temp Pulse Resp BP Pulse Ox 98.3 F 81 18 79/49 94 12/04/16 12:52 12/04/16 12:52 12/04/16 12:52 12/04/16 12:52 12/04/16 12:52 Vital Signs - Last 8 Hours Temp Pulse Resp BP Pulse Ox 12/04/16 16:30 83 18 80/55 96 12/04/16 14:13 82 18 90/48 97 12/04/16 13:45 82 18 95/62 97 12/04/16 13:13 82 18 85/62 96 12/04/16 13:11 94 12/04/16 12:52 98.3 F 81 18 79/49 94 Intake and Output 12/04/16 12/04/16 12/04/16 07:59 15:59 23:59 Intake Total 1000 / 1000 Balance 1000 / 1000 Intake: IV Fluids 1000 / 1000 0.9 % Sodium Chloride 1, 1000 / 1000 000 ML @ 3750 mls/hr IVC .Q16M ONE Rx#:[id number] Other: Weight 171.458 kg Patient Weight 12/04/16 23:59 Weight 171.458 kg - General Appearance General appearance: well-developed, well-nourished EENT: ATNC, mucous membranes dry Neck: no JVD, supple Respiratory: clear (ant bilat) Cardiology: no edema, normal S1, normal S2 Gastrointestinal: no tenderness, no guarding, obese Integumentary: warm and dry Musculoskeletal: no deformities Psychiatric: mood/affect appropriate, cooperative Results - Lab Results 12/05/16 10:43 12/05/16 13:54 Most recent lab results Calcium 9.2 mg/dL (8.6-10.8) 12/04/16 16:35 Magnesium 1.9 mg/dL (1.6-2.6) 12/04/16 16:35
[2016-12-04 18:06] LABS: Uric Acid 10.3 mg/dL (3.5-7.2)
[2016-12-04 18:57] LABS: Bilirubin,Urine Small (Negative); Blood,Urine Negative (Negative); Clarity,Urine Clear (Clear); Color,Urine Yellow (Yellow); Glucose,Urine (UA) Normal (Normal); Ketones,Urine Trace mg/dL (Negative); Leukocyte Esterase,Urine Negative (Negative); Nitrite,Urine Negative (Negative); Protein,Urine 100 mg/dL (Neg-Trace); Specific Gravity,Urine >= 1.030 (1.010-1.025); Urobilinogen,Urine Normal (Normal)
[2016-12-04 19:02] LABS: Amphetamine Screen,Urine Negative ng/mL (Cutoff=1000); Barbiturate Screen,Urine Negative ng/mL (Cutoff=200); Benzodiazepines Screen,Urine Negative ng/mL (Cutoff=200); Cannabinoid Screen,Urine Negative ng/mL (Cutoff = 50); Cocaine Screen,Urine Negative ng/mL (Cutoff= 300); Opiate Screen,Urine Positive ng/mL (Cutoff=300); Phencyclidine Screen,Urine Negative ng/mL (Cutoff=25)
[2016-12-04 19:13] LABS: Amorphous Sediment,Urine Few (Few); Bacteria,Urine Moderate per hpf (None-Few); RBC,Urine 0-3 per hpf (0-3); Squamous Epithelial Cell,Urine Moderate per lpf (None-Few); WBC,Urine 0-3 per hpf (0-3)
[2016-12-04] MEDS ORDERED: NON-FORMULARY MEDICATION 1 EACH EACH (Gabapentin [Neurontin] 1,200 MG) PO SCH (21:00)
[2016-12-04] MEDS: *HR* Heparin 5,000 UNIT/ML VIAL SQ SCH (22:14)
[2016-12-04] MEDS: Insulin LISPRO 300 UNITS/3 ML VIAL SQ SCH (22:15)
[2016-12-04] MEDS: Artificial Tears SOLN 15 ML BOTTLE OP SCH (22:21)
[2016-12-05] MEDS ORDERED: 0.9 % Sodium Chloride 1,000 ML IVC ONE ×3 (00:33→18:32)
[2016-12-05] MEDS: Insulin LISPRO 300 UNITS/3 ML VIAL SQ SCH ×8 (00:37→21:31)
[2016-12-05] MEDS: 0.9 % Sodium Chloride 1,000 ML IVC SCH ×6 (01:53→23:34)
[2016-12-05] MEDS: *HR* Heparin 5,000 UNIT/ML VIAL SQ SCH ×3 (05:04→21:31)
[2016-12-05] MEDS ORDERED: D5% in 0.9% NACL 1,000 ML IVC SCH (05:30)
[2016-12-05] MEDS ORDERED: Perflutren Lipid Microsphere 1.3 ML in 0.9 % Sodium Chloride 8.7 ML IVP ONE (08:47)
--- NOTE | 2016-12-05 09:30 | Internal Med Progress Note ---
Date of Encounter: 12/05/16 Time of Encounter: 09:27 - Assessment and plan (1) Syncope Current Visit: Yes Status: Acute Qualifiers: Syncope type: unspecified Qualified Code(s): R55 - Syncope and collapse (2) Acute renal failure Current Visit: Yes Status: Acute Qualifiers: Acute renal failure type: unspecified Qualified Code(s): N17.9 - Acute kidney failure, unspecified (3) Hypotension Current Visit: Yes Status: Acute Qualifiers: Hypotension type: unspecified hypotension type Qualified Code(s): I95.9 - Hypotension, unspecified (4) Diabetes Current Visit: Yes Status: Chronic Qualifiers: Diabetes mellitus type: type 2 Diabetes mellitus complication status: with unspecified complications Diabetes mellitus penitentiary insulin use: with moth exterminator use Qualified Code(s): E11.8 - Type 2 diabetes mellitus with unspecified complications; Z79.4 - [facility] (current) use of insulin (5) HTN (hypertension) Current Visit: Yes Status: Chronic Qualifiers: Hypertension type: essential hypertension Qualified Code(s): I10 - Essential (primary) hypertension (6) HLD (hyperlipidemia) Current Visit: Yes Status: Chronic Qualifiers: Hyperlipidemia type: pure hypercholesterolemia Qualified Code(s): E78.00 - Pure hypercholesterolemia, unspecified; E78.0 - Pure hypercholesterolemia (7) DVT prophylaxis Current Visit: Yes Status: Acute (8) Hyperkalemia Current Visit: Yes Status: Acute - Subjective Interval history: Mr. Gilberto Barriga is a 56-year-old male presented with a syncopal episode. He had near syncopal episode a week ago. Lab work showed acute renal failure with creatinine in the range of 7. His hemoglobin A1c is 11.5. Patient has been working out recently and there is a concern if he had prerenal as leukemia contributing to renal failure. At this time nephrology is on case. Fluid challenge has been given. Repeat labwork showed worsening of renal function as well as potassium. Dr. العراقي notified. She has given Kayexalate and insulin for potassium and I have ordered a repeat potassium at 8:00 to be reported to on -call hospitalist. Ultrasound renal showed normal kidneys no obstruction. Plan is to continue hydration and see if renal function improves. There is also a concern if he had the stroke however MRI of the brain is negative echo and ultrasound are also unremarkable. Echo showed EF greater than 55% with good LV systolic function and mild diastolic dysfunction. No PFO identified though quality of image was not good.. He has diabetes hypertension dyslipidemia. - Constitutional Vitals: Temp Pulse Resp BP Pulse Ox 97.8 F 80 16 93/47 93 12/05/16 06:46 12/05/16 06:46 12/05/16 06:46 12/05/16 06:46 12/05/16 06:46 General appearance: Present: cooperative, A&O X 2, morbidly obese - Head Head exam: Present: atraumatic, normocephalic - Eye Eye exam: Present: PERRL, conjuntiva pink, sclera anicteric Pupils: Present: PERRL - Neck Neck exam general surgery: Present: supple, trachea midline. Absent: lymphadenopathy - Respiratory Respiratory exam: Present: CTAB. Absent: accessory muscle use, rales, rhonchi, wheezes - Cardiovascular Cardiovascular exam: Present: RRR, +S1, +S2. Absent: diastolic murmur, gallop, rubs, systolic murmur - GI/Abdominal GI/Abdominal exam: Present: normal bowel sounds, soft, no peritoneal signs. Absent: distended, tenderness - Extremities Exam Extremities exam: Present: warm, radial pulses palpable and symmetrical. Absent : calf tenderness, cyanotic, pedal edema - Neurological Exam Neurological exam: Present: CN II-XII intact, oriented X3, no focal deficits. Absent: pronater drift, facial droop, speech deficit - Skin Skin exam: Present: dry, intact Internal Medicine: Result - Labs CBC & Chem 7: 12/05/16 10:43 12/05/16 13:54 - ABG Interpretation ABG results: PT/INR, D-dimer PT 10.6 Seconds (9.4-12.1) 12/04/16 16:35 Consult Discharge Plan - Plan [facility]errals: [facility] [Primary Care Provider[facility] -
[2016-12-05 11:09] LABS: Hematocrit 45.5 % (37.5-50.1); Hemoglobin 14.2 g/dL (12.9-16.9); Mean Corpuscular HGB Conc 31.2 g/dL (31.6-35.5); Mean Corpuscular Hemoglobin 30.7 pg (28.0-33.3); Mean Corpuscular Volume 98.3 fL (83.0-100.0); Mean Platelet Volume 10.5 fL (9.4-12.4); Platelet Count 189 K/mcL (140-400); Red Blood Count 4.63 M/mcL (4.19-5.50)
[2016-12-05] MEDS: Aspirin Enteric Coated 81 MG Tablet PO SCH (11:19)
[2016-12-05] MEDS: Pantoprazole 40 MG VIAL IVP SCH (11:20)
[2016-12-05] MEDS: Artificial Tears SOLN 15 ML BOTTLE OP SCH ×3 (11:20→21:31)
[2016-12-05 11:23] LABS: Bilirubin,Total 0.7 mg/dL (0.2-1.2); Calcium 8.5 mg/dL (8.6-10.8); Magnesium 1.7 mg/dL (1.6-2.6); Potassium 6.1 mEq/L (3.5-4.5)
[2016-12-05] MEDS ORDERED: NON-FORMULARY MEDICATION 1 EACH EACH (Insulin Aspart 10 UNIT) SQ SCH (12:00)
--- NOTE | 2016-12-05 12:05 | Nephrology Progress Note ---
Date of Encounter: 12/05/16 Time of Encounter: 11:45 - Assessment and Plan (1) KARISSA (acute kidney injury) Current Visit: Yes Status: Acute SCr worse without much UOP suspect not yet adequately volume repleted. Will bolus again 1 liter NS Discussed COMPUTER FORWARDING SYSTEM MARKUP CLERK today if still no UOP, Pt agreeable Continue to avoid nephrotoxins if possible Bladder scan now and flush sheppard CT abd/pelvis planned. Us of kidney showed no obstruction (2) Hyperkalemia Current Visit: Yes Status: Acute Potassium worse at 6.1, kayexalate now Renal diet advised (3) Syncope Current Visit: Yes Status: Acute Qualifiers: Syncope type: unspecified Qualified Code(s): R55 - Syncope and collapse Subjective Interval history: Pt seen and examined with at bedside. mental status almost back to baseline but still no significant UOP despite sheppard and over 4liters of fluids repleted. Objective - Vital Signs Vital signs: Vital Signs Temp Pulse Resp BP Pulse Ox 12/05/16 10:23 98.3 F 89 16 89/56 93 12/05/16 06:46 97.8 F 80 16 93/47 93 12/05/16 04:47 98.1 F 76 18 94 12/05/16 00:10 98.3 F 75 19 70/48 91 12/04/16 21:41 98.3 F 76 16 92/63 97 12/04/16 19:51 18 85/52 Intake and Output 12/04/16 12/05/16 12/05/16 23:59 07:59 15:59 Intake Total 240 / 240 1360 / 1360 120 / 120 Output Total 0 / 0 0 / 0 Balance 240 / 240 1360 / 1360 120 / 120 Intake: IV Fluids 1000 / 1000 0.9 % Sodium Chloride 1, 1000 / 1000 000 ML @ 125 mls/hr IVC . Q8H [facility] Rx#:[id number] Oral 240 / 240 360 / 360 120 / 120 Output: Urine 0 / 0 Catheter 0 / 0 0 / 0 Other: Meal Breakfast Percent of Meal Consumed 10% # Bowel Movements 0 Weight 176 kg 178.1 kg Blood Glucose* 70 114 106 Patient Weight 12/05/16 23:59 Weight 178.1 kg - Lab 12/05/16 10:43 12/05/16 10:43 Most recent lab results Calcium 8.5 mg/dL (8.6-10.8) L 12/05/16 10:43 Magnesium 1.7 mg/dL (1.6-2.6) 12/05/16 10:43 Urine Creatinine 258 mg/dL 12/04/16 18:45 Urine Sodium 21.0 mEq/L 12/04/16 18:45 Consult Discharge Plan - Plan [facility]errals: [facility] [Primary Care Provider] -
--- NOTE | 2016-12-05 14:52 | Carotid Imaging Report ---
Carotid Duplex Patient Name:Gilberto Barriga Order Number:[id number] Procedure Date:12/05/2016 Date:1960ge:56 yrs Gender:Male Location:[facility] Room #: 2NE20 Industrial Engineering Professor:Nadine Marcial MD:Kavin Chavez CNP winterizer:[facility] Lora MD:Rafael Mitchell MD Risk Factors Yes/No Hypertension Yes Diabetes Yes Hypercholesterolemia Yes Smoking Current No Impressions: The right carotid artery is normal throughout. The left carotid artery has minimal plaque. Findings Carotid Duplex: Right: The right proximal common carotid artery has a PSV of 81 cm/s and a EDV of 21 cm/s. The right mid common carotid artery has a PSV of 120 cm/s and a EDV of 32 cm/s. The right distal common carotid artery has a PSV of 94 cm/s and a EDV of 21 cm/s. The right bifurcation has a PSV of 69 cm/s and a EDV of 14 cm/s. The right proximal internal carotid artery has a PSV of 106 cm/s and a EDV of 32 cm/s. The right mid internal carotid artery has a PSV of 99 cm/s and a EDV of 29 cm/s. The right distal internal carotid artery has a PSV of 77 cm/s and a EDV of 33 cm/s. The right eca has a PSV of 124 cm/s and a EDV of 15 cm/s. The right vertebral artery has a PSV of 31 cm/s and a EDV of 7 cm/s. Left: The left proximal common carotid artery has a PSV of 146 cm/s and a EDV of 34 cm/s. The left mid common carotid artery has a PSV of 108 cm/s and a EDV of 24 cm/s. The left distal common carotid artery has a PSV of 118 cm/s and a EDV of 29 cm/s. The left bifurcation has a PSV of 115 cm/s and a EDV of 32 cm/s. The left proximal internal carotid artery has a PSV of 107 cm/s and a EDV of 23 cm/s. The left mid internal carotid artery has a PSV of 64 cm/s and a EDV of 11 cm/s. The left distal internal carotid artery has a PSV of 60 cm/s and a EDV of 11 cm/s. The left eca has a PSV of 93 cm/s and a EDV of 21 cm/s. The left vertebral artery has a PSV of 58 cm/s and a EDV of 15 cm/s. Carotid Results Right PSV EDV Assessment Proximal CCA 81 21 Normal Mid CCA 120 32 Normal Distal CCA 94 21 Normal Bifurcation 69 14 Normal Proximal ICA 106 32 Normal Mid ICA 99 29 Normal Distal ICA 77 33 Normal ECA 124 15 Normal Vertebral Artery 31 7 Normal Left PSV EDV Assessment Proximal CCA 146 34 Normal Mid CCA 108 24 Normal Distal CCA 118 29 Normal Bifurcation 115 32 Non Stenotic Plaque Proximal ICA 107 23 Normal Mid ICA 64 11 Normal Distal ICA 60 11 Normal ECA 93 21 Normal Vertebral Artery 58 15 Normal Ratio's Right ICA/CCA Ratio: 0.90 ICA/CCA Values: 106/120 Left ICA/CCA Ratio: 1.00 ICA/CCA Values: 107/108 Updated by Rafael Mitchell MD on 12/05/2016 2:43:40 PM electronically signed on 12/05/2016 2:45:44 PM with status of Final
[2016-12-05 15:05] LABS: Calcium 8.1 mg/dL (8.6-10.8)
[2016-12-05 15:13] LABS: Potassium 6.6 mEq/L (3.5-4.5)
[2016-12-05] MEDS ORDERED: Lidocaine 1% 20 ML MDV INFILT STA (17:02)
[2016-12-05] MEDS ORDERED: *HR* Heparin 5,000 UNIT/ML VIAL IV PRN (18:20)
[2016-12-05] MEDS ORDERED: *HR* Alteplase (Cathflo) 2 MG VIAL IVP PRN (18:20)
[2016-12-05] MEDS ORDERED: Calcium Gluconate 2,000 MG in D5% in Water 100 ML IVPB PRN (18:20)
[2016-12-05] MEDS: 0.9 % Sodium Chloride 1,000 ML PRIME SCH ×9 (18:46→23:38)
[2016-12-05] MEDS ORDERED: *HR* Heparin 5,000 UNIT/ML VIAL ONE (19:19)
[2016-12-05 20:01] LABS: INR 1.1; Prothrombin Time 11.6 Seconds (9.4-12.1)
[2016-12-05 20:03] LABS: Calcium 7.7 mg/dL (8.6-10.8)
[2016-12-05 20:04] LABS: Activated Partial Thrombo Time 28.1 Seconds (26.0-36.0)
[2016-12-05 20:07] LABS: Calcium 7.7 mg/dL (8.6-10.8)
[2016-12-05] MEDS: Calcium Chloride 4,000 MG in 0.9 % Sodium Chloride 1,000 ML CRRT SCH (20:50)
[2016-12-05] MEDS: PrismaSATE BGK 4/2.5 5,000 ML CRRT SCH ×2 (20:53)
[2016-12-05] MEDS ORDERED: 0.9 % Sodium Chloride 1,000 ML PRIME PRN (21:20)
[2016-12-05] MEDS ORDERED: Calcium Gluconate 1,000 MG/10 ML VIAL IVPB ONE (22:55)
[2016-12-05] MEDS: Calcium Gluconate 1,000 MG in D5% in Water 100 ML IVPB PRN (22:58)
[2016-12-06] MEDS: Calcium Gluconate 1,000 MG in D5% in Water 100 ML IVPB PRN ×5 (00:39→08:44)
[2016-12-06] MEDS ORDERED: D5% in Water 100 ML ONE ×2 (02:30→04:43)
[2016-12-06] MEDS ORDERED: Calcium Gluconate 1,000 MG/10 ML VIAL IVPB ONE ×2 (02:30→04:43)
[2016-12-06 04:12] LABS: Basophils % 0.2 %; Eosinophils # 0.1 K/mcL (0.0-0.6); Eosinophils % 0.7 %; Hematocrit 44.7 % (37.5-50.1); Hemoglobin 14.1 g/dL (12.9-16.9); Immature Granulocytes % 0.6 % (0-4); Immature Platelets 4.2 % (1.1-6.1); Lymphocytes # 1.6 K/mcL (0.6-4.6); Lymphocytes % 13.7 %; Mean Corpuscular HGB Conc 31.5 g/dL (31.6-35.5); Mean Corpuscular Hemoglobin 30.8 pg (28.0-33.3); Mean Corpuscular Volume 97.6 fL (83.0-100.0); Mean Platelet Volume 10.3 fL (9.4-12.4); Monocytes # 1.3 K/mcL (0.0-1.3); Monocytes % 11.4 %; Neutrophils # 8.3 K/mcL (1.6-8.9); Platelet Count 168 K/mcL (140-400); Red Blood Count 4.58 M/mcL (4.19-5.50); Red Cell Distribution Width 13.1 % (11.5-14.5); Segmented Neutrophils % 73.4 %
[2016-12-06 04:26] LABS: Albumin 2.9 g/dL (3.5-5.0); Albumin/Globulin Ratio 0.9 (1.1-2.2); Bilirubin,Direct 0.4 mg/dL (0.0-0.5); Bilirubin,Indirect 0.4 mg/dL (0.0-1.2); Bilirubin,Total 0.8 mg/dL (0.2-1.2); Calcium 8.6 mg/dL (8.6-10.8); Globulin 3.2 g/dL (2.4-3.5); Magnesium 1.6 mg/dL (1.6-2.6); Phosphorous 6.3 mg/dL (2.3-4.7); Potassium 5.7 mEq/L (3.5-4.5); Total Protein 6.1 g/dL (6.0-8.3)
[2016-12-06] MEDS: PrismaSATE BGK 4/2.5 5,000 ML CRRT SCH ×7 (04:30→21:25)
[2016-12-06] MEDS: 0.9 % Sodium Chloride 1,000 ML IVC SCH ×3 (05:01→20:10)
[2016-12-06] MEDS: *HR* Heparin 5,000 UNIT/ML VIAL SQ SCH ×2 (06:47→12:40)
[2016-12-06] MEDS: Insulin LISPRO 300 UNITS/3 ML VIAL SQ SCH ×7 (07:38→20:09)
[2016-12-06] MEDS: Aspirin Enteric Coated 81 MG Tablet PO SCH (07:39)
[2016-12-06] MEDS: Ondansetron 4 MG/2 ML VIAL IVP PRN (07:39)
[2016-12-06] MEDS: Pantoprazole 40 MG VIAL IVP SCH (07:39)
[2016-12-06] MEDS: Artificial Tears SOLN 15 ML BOTTLE OP SCH ×3 (07:42→20:09)
[2016-12-06] MEDS: Calcium Chloride 4,000 MG in 0.9 % Sodium Chloride 1,000 ML CRRT SCH ×2 (08:49→15:36)
--- NOTE | 2016-12-06 09:55 | Internal Med Progress Note ---
Date of Encounter: 12/06/16 Time of Encounter: 08:50 - Assessment and plan (1) Acute renal failure Current Visit: Yes Status: Acute Assessment and plan: Nephrology input appreciated continue DATA ENTRY MANAGER as per nephro BP improved and urine output improving will continue to closely monitor Qualifiers: Acute renal failure type: unspecified Qualified Code(s): N17.9 - Acute kidney failure, unspecified (2) Hyperkalemia Current Visit: Yes Status: Acute Assessment and plan: continue DATA ENTRY MANAGER therapy (3) Syncope Current Visit: Yes Status: Resolved Qualifiers: Syncope type: unspecified Qualified Code(s): R55 - Syncope and collapse (4) Hypotension Current Visit: Yes Status: Resolved Qualifiers: Hypotension type: unspecified hypotension type Qualified Code(s): I95.9 - Hypotension, unspecified (5) DVT prophylaxis Current Visit: Yes Status: Acute Assessment and plan: Heparin SQ (6) Diabetes Current Visit: Yes Status: Chronic Assessment and plan: continue sliding scale insulin algorithm monitor FS and BG ADA diet Qualifiers: Diabetes mellitus type: type 2 Diabetes mellitus complication status: with unspecified complications Diabetes mellitus chcf insulin use: with buttermilk drier operator use Qualified Code(s): E11.8 - Type 2 diabetes mellitus with unspecified complications; Z79.4 - rn long term care (current) use of insulin (7) HLD (hyperlipidemia) Current Visit: Yes Status: Chronic Assessment and plan: continue statin therapy Qualifiers: Hyperlipidemia type: pure hypercholesterolemia Qualified Code(s): E78.00 - Pure hypercholesterolemia, unspecified; E78.0 - Pure hypercholesterolemia (8) Morbid obesity with BMI of 45.0-49.9, adult Current Visit: Yes Status: Chronic - Subjective Interval history: Pt is a 56y/o male admitted to the ICU for acute renal failure. He was started on CRRT yesterday evening (12/05/16) and has had improvement in his BP and urine output. He is tolerating DATA ENTRY MANAGER well. Reported to have 75-125cc/hr of urine this morning. He reports of feeling better overall. Currently saturating well on nasal cannula but has no history of lung disease and he is not on home oxygen. Pt denies any acute discomfort at this time. - Constitutional Vitals: Temp Pulse Resp BP Pulse Ox 98.3 F 83 14 127/74 93 12/06/16 08:00 12/06/16 09:00 12/06/16 09:00 12/06/16 09:00 12/06/16 09:00 General appearance: Present: cooperative, A&O X 3, morbidly obese, no acute distress, answers questions appropriately - Head Head exam: Present: atraumatic, normocephalic - Respiratory Respiratory exam: Present: decreased breath sounds. Absent: respiratory distress, wheezes - Cardiovascular Cardiovascular exam: Present: RRR, +S1, +S2. Absent: diastolic murmur, gallop, rubs, systolic murmur - GI/Abdominal GI/Abdominal exam: Present: normal bowel sounds, soft, no peritoneal signs. Absent: distended, tenderness - Extremities Exam Extremities exam: Present: pedal edema, warm, radial pulses palpable and symmetrical. Absent: calf tenderness Additional comments: right IJ HD cath in place - Neurological Exam Neurological exam: Present: alert, oriented X3 - Psychiatric Psychiatric exam: Present: normal affect, normal mood Internal Medicine: Result - Labs CBC & Chem 7: 12/06/16 04:00 12/06/16 04:00 Labs: Short CBC 12/05/16 12/06/16 Range/Units 10:43 04:00 WBC 11.6 H 11.3 H (4.3-11.1) K/mcL Hgb 14.2 14.1 (12.9-16.9) g/dL Hct 45.5 44.7 (37.5-50.1) % Plt Count 189 168 (140-400) K/mcL Neutrophils # 8.3 (1.6-8.9) K/mcL BMP 12/05/16 12/05/16 12/05/16 10:43 13:54 19:45 Sodium 134 L 134 L 135 L Potassium 6.1 H 6.6 H* 6.0 H Chloride 100 102 104 Carbon Dioxide 25 22 19 BUN 54 H 55 H 55 H Creatinine 9.45 H 9.50 H 9.63 H Glucose 116 H 130 H 128 H Calcium 8.5 L 8.1 L 7.7 L 12/05/16 12/06/16 19:45 04:00 Sodium 136 Potassium 5.7 H Chloride 103 Carbon Dioxide 22 BUN 51 H Creatinine 8.65 H Glucose 140 H Calcium 7.7 L 8.6 Liver Function 12/05/16 12/06/16 Range/Units 10:43 04:00 Total Bilirubin 0.7 0.8 (0.2-1.2) mg/dL Direct Bilirubin 0.4 (0.0-0.5) mg/dL AST 15 15 (5-34) Units/L ALT 17 14 (0-55) Units/L Alkaline Phosphatase 61 66 (38-126) Units/L Albumin 3.0 L 2.9 L (3.5-5.0) g/dL - ABG Interpretation ABG results: PT/INR, D-dimer PT 11.6 Seconds (9.4-12.1) 12/05/16 19:45 - Impressions Impressions Chest X-Ray 12/05/16 18:05 IMPRESSION: Mild vascular congestion. Minimal bibasilar atelectasis. Otherwise no acute cardiopulmonary findings. D/ / 12/05/2016 18:26:41 Talib Gerber MD / [facility] Interpreting Provider: Talib Gerber MD Chest X-Ray 12/05/16 19:22 IMPRESSION: Right internal jugular dialysis catheter tip overlies the atrial caval junction, without pneumothorax. D/ / Rigoberto Moreira MD / Rigoberto Moreira MD Interpreting Provider: Rigoberto Moreira MD Consult Discharge Plan - Plan [facility]errals: [facility] [Primary Care Provider] -
--- NOTE | 2016-12-06 10:16 | IR Procedure Note ---
Date of procedure: 12/05/16 Consent Obtained: Written consent Timeout: Correct patient and procedure verified, Correct site verified, Time out performed, Skin prep completed Local anesthetic: Lidocaine 1% Indications: Acute renal insufficiency Procedure Performed: Temp HD catheter placement Site/Technique: RIJV used for access. Placed emergently per request by Nephrology. Results/Findings: 20cm cath used, 15fr given pt neck size. Estimated blood loss (cc): 1 Complications: None; Tolerated procedure well Post Procedure Treatment Plan: Monitoring in ICU
[2016-12-06 14:14] LABS: Calcium 9.2 mg/dL (8.6-10.8); Potassium 5.7 mEq/L (3.5-4.5)
[2016-12-06] MEDS ORDERED: *HR* Heparin 5,000 UNIT/ML VIAL IVP PRN ×2 (14:31)
[2016-12-06] MEDS ORDERED: *HR* Heparin 5,000 UNIT/ML VIAL IVP ONE (14:31)
[2016-12-06 14:48] LABS: Hematocrit 44.7 % (37.5-50.1); Hemoglobin 14.2 g/dL (12.9-16.9); Immature Platelets 4.3 % (1.1-6.1); Mean Corpuscular HGB Conc 31.8 g/dL (31.6-35.5); Mean Corpuscular Hemoglobin 30.9 pg (28.0-33.3); Mean Corpuscular Volume 97.2 fL (83.0-100.0); Mean Platelet Volume 9.9 fL (9.4-12.4); Red Blood Count 4.6 M/mcL (4.19-5.50); Red Cell Distribution Width 12.9 % (11.5-14.5)
[2016-12-06 14:53] LABS: INR 1.1; Prothrombin Time 11.9 Seconds (9.4-12.1)
[2016-12-06] MEDS: Heparin 25,000 UNIT/500 ML D5W 25,000 UNIT/500 ML MLS IVC SCH (15:16)
--- NOTE | 2016-12-06 15:22 | Nephrology Progress Note ---
Date of Encounter: 12/06/16 Time of Encounter: 11:00 - Assessment and Plan (1) KARISSA (acute kidney injury) Current Visit: Yes Status: Acute SCr slightly better on CVVH which is expected, will continue CVVH today and repeat labs this afternoon Hemodynamics stabilizing with BP readings now in 100s systolic Continue to avoid nephrotoxins if possible UOP improving and with 500cc already collected today, continue IVF for now (2) Hyperkalemia Current Visit: Yes Status: Acute Potassium improving at 5.7. s/p kayexalate yesterday at 60g with no BM yet Renal diet advised (3) Syncope Current Visit: Yes Status: Resolved Qualifiers: Syncope type: unspecified Qualified Code(s): R55 - Syncope and collapse Subjective Interval history: Pt seen and examined with at bedside resting but arousable. s/p Temp IJ placed last evening with CVVH started yesterday for hyperkalemia of 6.6 and poor UOP of less than 100cc in 24hrs and SCR of 9.5. No overnight issues. BP readings improved after another bolus of NS 1 liter yesterday evening with NS at 125cc/hr ongoing. Objective - Vital Signs Vital signs: Vital Signs Temp Pulse Resp BP Pulse Ox 12/06/16 15:00 98.2 F 78 16 115/73 96 12/06/16 14:00 73 18 103/71 95 12/06/16 13:00 74 16 124/78 91 12/06/16 12:00 76 16 106/94 95 12/06/16 11:00 98.7 F 82 16 93/61 93 12/06/16 10:00 82 14 103/51 91 12/06/16 09:00 83 14 127/74 93 12/06/16 08:00 98.3 F 80 14 115/71 90 12/06/16 07:30 82 12/06/16 07:00 80 12 126/79 90 12/06/16 06:00 78 15 129/86 91 12/06/16 05:00 77 12 127/83 93 12/06/16 04:00 96.5 F L 79 21 128/93 92 12/06/16 03:00 79 16 128/79 90 12/06/16 02:00 82 22 113/64 90 12/06/16 01:00 90 14 134/107 93 12/06/16 00:00 97.6 F 83 16 111/73 90 12/05/16 23:40 80 12/05/16 23:00 80 15 100/59 94 12/05/16 22:00 82 22 105/66 94 12/05/16 21:00 82 18 126/82 94 12/05/16 20:00 82 16 89/56 92 12/05/16 19:00 98.5 F 89 20 119/56 90 12/05/16 16:14 98.2 F 79 16 138/98 95 Intake and Output 12/05/16 12/06/16 12/06/16 23:59 07:59 15:59 Intake Total 2049 2582.0 / 2582.0 2247.9 / 2247.9 Output Total 286 / 286 1130 / 1130 2151 / 2151 Balance 1764 / 1764 1452.0 / 1452.0 96.9 / 96.9 Intake: IV Fluids 2049 2582.0 / 2582.0 1527.9 / 1527.9 Calcium Chloride 4,000 MG 50 / 50 684.7 / 684.7 607.3 / 607.3 In 0.9 % Sodium Chloride 1,000 ML @ 40 mls/hr CRRT CONT [facility] Rx#: [id number] PrismaSATE BGK 4/2.5 5, 0 / 0 0 / 0 000 ML @ 1000 mls/hr CRRT CONT [facility] Rx#:[id number] 0.9 % Sodium Chloride 1, 1000 / 1000 1347.3 / 1347.3 690.6 / 690.6 000 ML @ 125 mls/hr IVC . Q8H [facility] Rx#:[id number] Calcium Gluconate 2,000 550 / 550 230 / 230 MG In Dextrose 5% 100 ML @ 220 mls/hr IVPB ONCE PRN Rx#:[id number] 0.9 % Sodium Chloride 1, 1000 / 1000 000 ML @ 9999 mls/hr PRIME .Q6M [facility] Rx#: [id number] Oral 720 / 720 Output: Urine 100 / 100 235 / 235 Ana M 111 / 111 895 / 895 1376 / 1376 Catheter 75 / 75 775 / 775 Other: Meal Lunch Percent of Meal Consumed 50% Weight 176.5 kg 176 kg Blood Glucose* 121 120 272 Patient Weight 12/06/16 23:59 Weight 176 kg - General Appearance General appearance: Present: well-developed, well-nourished, fatigue (NAD) EENT: Present: ATNC, mucous membranes moist Neck: Present: no JVD, supple Respiratory: Present: clear (ant bilat) Cardiology: Present: edema (trace LE bilat), normal S1, normal S2 Dialysis Vascular Access: Venous Catheter (temp IJ catheter) Gastrointestinal: Present: no tenderness, no guarding, obese Integumentary: Present: no rash, warm and dry Neurologic: Present: no focal deficit Musculoskeletal: Present: no deformities Psychiatric: Present: mood/affect appropriate, cooperative - Lab 12/06/16 14:40 12/06/16 13:55 Most recent lab results Calcium 9.2 mg/dL (8.6-10.8) 12/06/16 13:55 Phosphorus 6.3 mg/dL (2.3-4.7) H 12/06/16 04:00 Magnesium 1.6 mg/dL (1.6-2.6) 12/06/16 04:00 Urine Creatinine 258 mg/dL 12/04/16 18:45 Urine Sodium 21.0 mEq/L 12/04/16 18:45 Consult Discharge Plan - Plan [facility]errals: [facility] [Primary Care Provider] -
[2016-12-06 23:29] LABS: Activated Partial Thrombo Time > 360.0 Seconds (26.0-36.0)
[2016-12-06 23:59] LABS: Heparin anti-factor XA UFH 1.68 IU/mL (0.30-0.70)
[2016-12-07 03:47] LABS: Basophils % 0.3 %; Eosinophils # 0.2 K/mcL (0.0-0.6); Eosinophils % 1.9 %; Hematocrit 42.9 % (37.5-50.1); Immature Granulocytes % 0.5 % (0-4); Lymphocytes # 1.2 K/mcL (0.6-4.6); Lymphocytes % 10.9 %; Mean Corpuscular HGB Conc 32.6 g/dL (31.6-35.5); Mean Corpuscular Volume 95.1 fL (83.0-100.0); Mean Platelet Volume 10.4 fL (9.4-12.4); Monocytes # 1.2 K/mcL (0.0-1.3); Monocytes % 10.6 %; Neutrophils # 8.3 K/mcL (1.6-8.9); Platelet Count 165 K/mcL (140-400); Red Blood Count 4.51 M/mcL (4.19-5.50); Red Cell Distribution Width 12.8 % (11.5-14.5); Segmented Neutrophils % 75.8 %
[2016-12-07] MEDS: 0.9 % Sodium Chloride 1,000 ML IVC SCH ×3 (03:57→22:00)
[2016-12-07 04:19] LABS: Calcium 8.3 mg/dL (8.6-10.8); Magnesium 1.5 mg/dL (1.6-2.6); Phosphorous 3.7 mg/dL (2.3-4.7); Potassium 4.8 mEq/L (3.5-4.5)
--- NOTE | 2016-12-07 05:28 | Event Note ---
Date of Encounter: 12/07/16 Time of Encounter: 05:24 Patient had episode of epistaxis, PTT was >360. Heparin drip was stopped. PTT was rechecked 4 hours later and decreased to 36.1. Patient's urine output significantly increased overnight. Potassium improved to 4.8 while on rena. Will continue to hold heparin now due to bleeding.
[2016-12-07] MEDS: PrismaSATE BGK 4/2.5 5,000 ML CRRT SCH ×3 (06:58→21:07)
[2016-12-07] MEDS ORDERED: *HR* Heparin 5,000 UNIT/ML VIAL ONE (07:22)
[2016-12-07] MEDS: Heparin 25,000 UNIT/500 ML D5W 25,000 UNIT/500 ML MLS IVC SCH (08:10)
[2016-12-07] MEDS: Artificial Tears SOLN 15 ML BOTTLE OP SCH ×3 (08:19→22:00)
[2016-12-07] MEDS: Aspirin Enteric Coated 81 MG Tablet PO SCH (08:19)
[2016-12-07] MEDS: Pantoprazole 40 MG VIAL IVP SCH (08:19)
[2016-12-07] MEDS: Insulin LISPRO 300 UNITS/3 ML VIAL SQ SCH ×7 (08:20→22:00)
[2016-12-07] MEDS ORDERED: Magnesium Sulfate 2 GM in D5% in Water 100 ML IVPB ONE (08:37)
--- NOTE | 2016-12-07 09:36 | Internal Med Progress Note ---
Date of Encounter: 12/07/16 Time of Encounter: 08:45 - Assessment and plan (1) Acute renal failure Current Visit: Yes Status: Acute Assessment and plan: Nephrology input appreciated continue SERVICE STATION OPERATOR as per nephro BP improved and urine output improving will continue to closely monitor Qualifiers: Acute renal failure type: unspecified Qualified Code(s): N17.9 - Acute kidney failure, unspecified (2) Hyperkalemia Current Visit: Yes Status: Acute Assessment and plan: significantly improved s/p receiving Kayxelate, no BM reported yet no EKG changes reported will continue to closely monitor (3) Syncope Current Visit: Yes Status: Resolved Qualifiers: Syncope type: unspecified Qualified Code(s): R55 - Syncope and collapse (4) Hypotension Current Visit: Yes Status: Resolved Qualifiers: Hypotension type: unspecified hypotension type Qualified Code(s): I95.9 - Hypotension, unspecified (5) DVT prophylaxis Current Visit: Yes Status: Acute Assessment and plan: Heparin SQ (6) Diabetes Current Visit: Yes Status: Chronic Assessment and plan: continue sliding scale insulin algorithm Added Levemir 12units SQ qdaily according to the 24 hour insulin requirement monitor FS and BG ADA diet Qualifiers: Diabetes mellitus type: type 2 Diabetes mellitus complication status: with unspecified complications Diabetes mellitus bed bug exterminator insulin use: with bed bug exterminator use Qualified Code(s): E11.8 - Type 2 diabetes mellitus with unspecified complications; Z79.4 - intermediate manager (current) use of insulin (7) HLD (hyperlipidemia) Current Visit: Yes Status: Chronic Assessment and plan: continue statin therapy Qualifiers: Hyperlipidemia type: pure hypercholesterolemia Qualified Code(s): E78.00 - Pure hypercholesterolemia, unspecified; E78.0 - Pure hypercholesterolemia (8) Morbid obesity with BMI of 45.0-49.9, adult Current Visit: Yes Status: Chronic (9) Electrolyte abnormality Current Visit: Yes Status: Acute Assessment and plan: Hypomagnesemia Mg supplemented continue to monitor electrolytes and replace as needed - Subjective Interval history: Pt is a 56y/o male admitted to the ICU for acute renal failure. He was started on CRRT yesterday evening (12/05/16) and has had improvement in his BP and urine output. Pt seen and examined with present at bedside. Overnight patient was noted to have epistaxis due to which heparin gtt was discontinued. Pt has had significant improvement in his urine output due to which his CRRT has been placed on hold at this time. He is currently saturating well on room air and reports of feeling better compared to previous day. No recurrent bleeding episodes have been reported since the heparin gtt has been discontinued - Constitutional Vitals: Temp Pulse Resp BP Pulse Ox 98 F 98 16 131/73 90 12/07/16 05:00 12/07/16 09:00 12/07/16 09:00 12/07/16 09:00 12/07/16 09:00 General appearance: Present: cooperative, A&O X 3, morbidly obese, no acute distress, answers questions appropriately - Head Head exam: Present: atraumatic, normocephalic - Eye Eye exam: Present: conjuntiva pink, sclera anicteric - Respiratory Respiratory exam: Present: CTAB. Absent: accessory muscle use, rales, rhonchi, wheezes - Cardiovascular Cardiovascular exam: Present: RRR, +S1, +S2. Absent: diastolic murmur, gallop, rubs, systolic murmur - GI/Abdominal GI/Abdominal exam: Present: normal bowel sounds, soft, no peritoneal signs. Absent: distended, tenderness - Extremities Exam Extremities exam: Present: pedal edema, warm, radial pulses palpable and symmetrical. Absent: calf tenderness - Neurological Exam Neurological exam: Present: alert, oriented X3 - Psychiatric Psychiatric exam: Present: normal affect, normal mood Internal Medicine: Result - Labs CBC & Chem 7: 12/07/16 03:30 12/07/16 03:30 Labs: Short CBC 12/06/16 12/07/16 Range/Units 14:40 03:30 WBC 10.3 10.9 (4.3-11.1) K/mcL Hgb 14.2 14.0 (12.9-16.9) g/dL Hct 44.7 42.9 (37.5-50.1) % Plt Count 153 165 (140-400) K/mcL Neutrophils # 8.3 (1.6-8.9) K/mcL BMP 12/06/16 12/07/16 13:55 03:30 Sodium 134 L 138 Potassium 5.7 H 4.8 H Chloride 103 105 Carbon Dioxide 23 25 BUN 49 H 40 H Creatinine 7.94 H 5.76 H Glucose 217 H 177 H Calcium 9.2 8.3 L - ABG Interpretation ABG results: PT/INR, D-dimer PT 11.9 Seconds (9.4-12.1) 12/06/16 14:40 - Impressions Impressions Guidance Ultrasound 12/05/16 00:00 IMPRESSION: Successful ultrasound-guided vascular access into the right neck, with placement of a temporary hemodialysis catheter as above. D/ / Jean-Claude Lundy MD / Jean-Claude Lundy MD Interpreting Provider: Jean-Claude Lundy MD Insertion Non-Tunneled Catheter 12/05/16 00:00 IMPRESSION: Successful ultrasound-guided vascular access into the right neck, with placement of a temporary hemodialysis catheter as above. D/ / Jean-Claude Lundy MD / Jean-Claude Lundy MD Interpreting Provider: Jean-Claude Lundy MD Chest X-Ray 12/05/16 18:05 IMPRESSION: Mild vascular congestion. Minimal bibasilar atelectasis. Otherwise no acute cardiopulmonary findings. D/ / 12/05/2016 18:26:41 Talib Gerber MD / [facility] Interpreting Provider: Talib Gerber MD Consult Discharge Plan - Plan Referrals: [facility] [Primary Care Provider] -
[2016-12-07] MEDS: Insulin DETEMIR 100 UNIT/ML X5UNITS SQ SCH (10:04)
[2016-12-07] MEDS: *HR* Heparin 5,000 UNIT/ML VIAL SQ SCH ×2 (10:18→21:12)
--- NOTE | 2016-12-07 12:14 | Nephrology Progress Note ---
Date of Encounter: 12/07/16 Time of Encounter: 12:14 - Assessment and Plan (1) KARISSA (acute kidney injury) Current Visit: Yes Status: Acute He now appears to be in the polyuric phase of renal recovery. Holding Ana M today. BMP to be checked this afternoon. Continue to follow a renal protective strategy Will assess for any further dialysis on Saturday and Saturday. Discussed with the primary team. (2) Generalized weakness Current Visit: Yes Status: Acute Due to the KARISSA/Critical illness (3) Hyperkalemia Current Visit: Yes Status: Acute Improving today (4) HTN (hypertension) Current Visit: Yes Status: Chronic Hx of chronic hypertension but while ill he was hypotensive, and this is improving Qualifiers: Hypertension type: essential hypertension Qualified Code(s): I10 - Essential (primary) hypertension Subjective Principal diagnosis: KARISSA Interval history: Pt was s/e earlier today in the ICU. His was present. He was placed on Ana M for KARISSA and then his UOP rapidly improved. Today he reported some fatigue but otherwise he did not affirm N/V/D. Objective - Vital Signs Vital signs: Vital Signs Temp Pulse Resp BP Pulse Ox 12/07/16 11:20 91 12/07/16 11:00 98.8 F 88 16 114/54 95 12/07/16 10:00 95 16 125/64 91 12/07/16 09:00 98 16 131/73 90 12/07/16 08:00 96 18 118/64 94 12/07/16 07:45 89 12/07/16 07:00 86 16 134/104 95 12/07/16 06:00 128 16 116/104 90 12/07/16 05:00 98 F 85 16 138/72 90 12/07/16 04:00 84 16 121/80 90 12/07/16 03:00 85 16 109/91 12/07/16 02:00 16 105/79 91 12/07/16 01:00 89 16 117/72 95 12/07/16 00:00 89 16 125/74 91 12/06/16 23:00 97.4 F L 85 16 134/63 92 12/06/16 22:00 84 16 125/70 92 12/06/16 21:00 87 16 134/77 96 12/06/16 20:00 83 16 126/80 94 12/06/16 19:00 84 20 127/73 91 12/06/16 18:00 88 20 126/74 94 12/06/16 17:00 78 18 123/63 97 12/06/16 16:00 78 18 105/68 96 12/06/16 15:00 98.2 F 76 16 115/73 96 12/06/16 14:00 73 18 103/71 95 12/06/16 13:00 74 16 124/78 91 Intake and Output 12/06/16 12/07/16 12/07/16 23:59 07:59 15:59 Intake Total 3077 / 3077 1663 / 1663 600 / 600 Output Total 4479 / 4479 5751 / 5751 2900 / 2900 Balance -1402 / -1402 -4088 / -4088 -2300 / -2300 Intake: IV Fluids 7 / 7 1263 / 1263 PrismaSATE BGK 4/2.5 5, 0 / 0 0 / 0 000 ML @ 1000 mls/hr CRRT CONT [facility] Rx#:[id number] 0.9 % Sodium Chloride 1, 1743 / 1743 1263 / 1263 000 ML @ 125 mls/hr IVC . Q8H [facility] Rx#:[id number] Heparin 25,000 UNIT/500 374 / 374 ML D5W 25,000 unit In 500 ml @ 14 UNIT/KG/HR 49.28 mls/hr IVC .Q10H9M [facility] Rx#:[id number] Oral 960 / 960 400 / 400 600 / 600 Output: Ana M 529 / 529 1 / Catheter 3950 / 3950 5750 / 5750 2900 / 2900 Other: Meal Dinner Breakfast Percent of Meal Consumed 50% 100% Blood Glucose* 201 262 - General Appearance General appearance: Present: well-developed, fatigue EENT: Present: ATNC, PERRL, mucous membranes moist Neck: Present: supple Respiratory: Present: clear Cardiology: Present: edema, regular rate, normal S1, normal S2 Dialysis Vascular Access: Venous Catheter (DCJ c/d/i) Gastrointestinal: Present: normoactive bowel sounds, no tenderness, no guarding , obese Integumentary: Present: no rash, warm and dry Neurologic: Present: no focal deficit, no asterixis, alert and oriented x3 Musculoskeletal: Present: no erythema, no cyanosis, no clubbing Psychiatric: Present: mood/affect appropriate, cooperative - Lab 12/07/16 03:30 12/07/16 14:49 Most recent lab results Calcium 8.3 mg/dL (8.6-10.8) L 12/07/16 03:30 Phosphorus 3.7 mg/dL (2.3-4.7) 12/07/16 03:30 Magnesium 1.5 mg/dL (1.6-2.6) L 12/07/16 03:30 Urine Creatinine 258 mg/dL 12/04/16 18:45 Urine Sodium 21.0 mEq/L 12/04/16 18:45 Consult Discharge Plan - Plan Referrals: [facility] [Primary Care Provider] -
[2016-12-07 15:10] LABS: Potassium 4.2 mEq/L (3.5-4.5)
[2016-12-07] MEDS: Calcium Chloride 4,000 MG in 0.9 % Sodium Chloride 1,000 ML CRRT SCH (21:07)
[2016-12-08 05:13] LABS: Basophils % 0.5 %; Eosinophils # 0.2 K/mcL (0.0-0.6); Eosinophils % 2.6 %; Hematocrit 39.5 % (37.5-50.1); Immature Granulocytes % 0.5 % (0-4); Lymphocytes # 1.9 K/mcL (0.6-4.6); Lymphocytes % 21.5 %; Mean Corpuscular HGB Conc 32.9 g/dL (31.6-35.5); Mean Corpuscular Hemoglobin 30.5 pg (28.0-33.3); Mean Corpuscular Volume 92.7 fL (83.0-100.0); Mean Platelet Volume 10.1 fL (9.4-12.4); Monocytes % 11.8 %; Neutrophils # 5.5 K/mcL (1.6-8.9); Platelet Count 178 K/mcL (140-400); Red Blood Count 4.26 M/mcL (4.19-5.50); Segmented Neutrophils % 63.1 %
[2016-12-08 05:24] LABS: Potassium 3.7 mEq/L (3.5-4.5)
[2016-12-08 05:25] LABS: Calcium 7.6 mg/dL (8.6-10.8); Magnesium 1.2 mg/dL (1.6-2.6); Phosphorous 2.6 mg/dL (2.3-4.7)
[2016-12-08] MEDS: 0.9 % Sodium Chloride 1,000 ML IVC SCH (06:20)
[2016-12-08] MEDS: Artificial Tears SOLN 15 ML BOTTLE OP SCH ×3 (08:10→22:30)
[2016-12-08] MEDS: Aspirin Enteric Coated 81 MG Tablet PO SCH (08:15)
[2016-12-08] MEDS: Insulin DETEMIR 100 UNIT/ML X5UNITS SQ SCH (08:19)
[2016-12-08] MEDS: Insulin LISPRO 300 UNITS/3 ML VIAL SQ SCH ×7 (08:19→22:29)
[2016-12-08] MEDS: Magnesium Sulfate 1 GM in D5% in Water 100 ML IVPB SCH ×3 (08:20→16:08)
[2016-12-08] MEDS: *HR* Heparin 5,000 UNIT/ML VIAL SQ SCH ×2 (08:23→22:28)
[2016-12-08] MEDS: Ondansetron 4 MG/2 ML VIAL IVP PRN ×2 (09:45→20:03)
--- NOTE | 2016-12-08 10:08 | Internal Med Progress Note ---
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 BP improved and urine output improving will continue to closely monitor Renal function improving Qualifiers: Acute renal failure type: unspecified Qualified Code(s): N17.9 - Acute kidney failure, unspecified (2) Hyperkalemia Current Visit: Yes Status: Resolved (3) Syncope Current Visit: Yes Status: Resolved Qualifiers: Syncope type: unspecified Qualified Code(s): R55 - Syncope and collapse (4) Hypotension Current Visit: Yes Status: Resolved Assessment and plan: Pt noted to be hypertensive will restart home dose of Atenolol continue to hold lasix and lisinopril given renal function will closely monitor BP Qualifiers: Hypotension type: unspecified hypotension type Qualified Code(s): I95.9 - Hypotension, unspecified (5) DVT prophylaxis Current Visit: Yes Status: Acute Assessment and plan: Heparin SQ (6) Diabetes Current Visit: Yes Status: Chronic Assessment and plan: continue sliding scale insulin algorithm BG better controlled continue Levemir 12units SQ qdaily monitor FS and BG ADA diet Extensive diabetic education provided and the need to be compliant with diet and therapy given his poorly controlled DM Zofran 4mg IV q6h prn n/v Qualifiers: Diabetes mellitus type: type 2 Diabetes mellitus complication status: with unspecified complications Diabetes mellitus shelter insulin use: with shelter use Qualified Code(s): E11.8 - Type 2 diabetes mellitus with unspecified complications; Z79.4 - middle or intermediate school principal (current) use of insulin (7) HLD (hyperlipidemia) Current Visit: Yes Status: Chronic Assessment and plan: continue statin therapy Qualifiers: Hyperlipidemia type: pure hypercholesterolemia Qualified Code(s): E78.00 - Pure hypercholesterolemia, unspecified; E78.0 - Pure hypercholesterolemia (8) Morbid obesity with BMI of 45.0-49.9, adult Current Visit: Yes Status: Chronic (9) Electrolyte abnormality Current Visit: Yes Status: Acute Assessment and plan: Hypomagnesemia Mg supplemented continue to monitor electrolytes and replace as needed - Subjective Interval history: Pt is a 56y/o male admitted to the ICU for acute renal failure. He was started on CRRT yesterday evening (12/05/16) and has had improvement in his BP and urine output. Pt seen and examined with present at bedside. States he feels nauseous this morning but denies any other discomfort at this time. No overnight issues were reported. - Constitutional Vitals: Temp Pulse Resp BP Pulse Ox 98.4 F 90 18 154/83 91 12/08/16 06:56 12/08/16 06:56 12/08/16 06:56 12/08/16 06:56 12/08/16 06:56 General appearance: Present: cooperative, A&O X 3, morbidly obese, no acute distress, answers questions appropriately - Head Head exam: Present: atraumatic, normocephalic - Eye Eye exam: Present: conjuntiva pink, sclera anicteric - Respiratory Respiratory exam: Present: CTAB. Absent: respiratory distress, wheezes - Cardiovascular Cardiovascular exam: Present: RRR, +S1, +S2. Absent: diastolic murmur, gallop, rubs, systolic murmur - GI/Abdominal GI/Abdominal exam: Present: normal bowel sounds, soft, no peritoneal signs. Absent: distended, tenderness - Extremities Exam Extremities exam: Present: pedal edema (trace pedal edema bilaterally), warm, radial pulses palpable and symmetrical. Absent: calf tenderness - Neurological Exam Neurological exam: Present: alert, oriented X3 - Psychiatric Psychiatric exam: Present: normal affect, normal mood Internal Medicine: Result - Labs CBC & Chem 7: 12/08/16 04:55 12/08/16 04:55 Labs: Short CBC 12/08/16 Range/Units 04:55 WBC 8.8 (4.3-11.1) K/mcL Hgb 13.0 (12.9-16.9) g/dL Hct 39.5 (37.5-50.1) % Plt Count 178 (140-400) K/mcL Neutrophils # 5.5 (1.6-8.9) K/mcL BMP 12/07/16 12/08/16 14:49 04:55 Sodium 140 142 Potassium 4.2 3.7 Chloride 105 107 Carbon Dioxide 28 28 BUN 36 H 29 H Creatinine 4.82 H 3.46 H Glucose 192 H 134 H Calcium 8.0 L 7.6 L - ABG Interpretation ABG results: PT/INR, D-dimer PT 11.9 Seconds (9.4-12.1) 12/06/16 14:40 Consult Discharge Plan - Plan [facility]errals: [facility] [[facility] Care Provider[facility] -
--- NOTE | 2016-12-08 10:33 | Nephrology Progress Note ---
Date of Encounter: 12/08/16 Time of Encounter: 10:32 - Assessment and Plan (1) KARISSA (acute kidney injury) Current Visit: Yes Status: Acute SCr improving nicely Agree with IVF d/t his polyuric phase of renal recovery but the PNa and serum Cl are rising, so will switch to 1/2NS. Continue to follow a renal protective strategy Will assess for any further dialysis on Saturday and Saturday. Discussed with the primary team. (2) Generalized weakness Current Visit: Yes Status: Acute Due to the KARISSA/Critical illness (3) Hyperkalemia Current Visit: Yes Status: Resolved Improving today (4) HTN (hypertension) Current Visit: Yes Status: Chronic Hx of chronic hypertension but while ill he was hypotensive, and this is improving Qualifiers: Hypertension type: essential hypertension Qualified Code(s): I10 - Essential (primary) hypertension Subjective Principal diagnosis: KARISSA Interval history: Pt was s/e earlier today on 2A. His was present. He did not affirm N/V/D. Objective - Vital Signs Vital signs: Vital Signs Temp Pulse Resp BP Pulse Ox 12/08/16 06:56 98.4 F 90 18 154/83 91 12/08/16 05:06 99 F 89 16 130/72 91 12/08/16 00:06 99 F 90 16 125/66 93 12/07/16 18:56 99.0 F 94 17 130/77 96 12/07/16 15:11 87 12/07/16 15:00 98.1 F 87 16 120/75 95 12/07/16 14:00 86 16 127/80 94 12/07/16 13:00 90 16 130/77 92 12/07/16 12:00 91 16 130/67 95 12/07/16 11:20 91 12/07/16 11:00 98.8 F 88 16 114/54 95 Intake and Output 12/07/16 12/08/16 12/08/16 23:59 07:59 15:59 Intake Total 1000 / 1000 1200 / 1200 120 / 120 Output Total 1950 / 1950 1800 / 1800 Balance -950 / -950 -600 / -600 120 / 120 Intake: IV Fluids 1000 / 1000 1000 / 1000 0.9 % Sodium Chloride 1, 1000 / 1000 1000 / 1000 000 ML @ 125 mls/hr IVC . Q8H [facility] Rx#:[id number] Oral 0 / 0 200 / 200 120 / 120 Output: Catheter 1950 / 1950 1800 / 1800 Other: Meal Breakfast Percent of Meal Consumed 0% Weight 176.5 kg Blood Glucose* 173 150 Patient Weight 12/08/16 23:59 Weight 176.5 kg - General Appearance Exam: General appearance: Present: well-developed, fatigue EENT: Present: ATNC, PERRL, mucous membranes moist Neck: Present: supple Respiratory: Present: clear Cardiology: Present: edema, regular rate, normal S1, normal S2 Dialysis Vascular Access: Venous Catheter ([facility] c/d/i) Gastrointestinal: Present: normoactive bowel sounds, no tenderness, no guarding , obese Integumentary: Present: no rash, warm and dry Neurologic: Present: no focal deficit, no asterixis, alert and oriented x3 Musculoskeletal: Present: no erythema, no cyanosis, no clubbing Psychiatric: Present: mood/affect appropriate, cooperative - Lab 12/09/16 05:55 12/09/16 05:55 Most recent lab results Calcium 7.6 mg/dL (8.6-10.8) L 12/08/16 04:55 Phosphorus 2.6 mg/dL (2.3-4.7) 12/08/16 04:55 Magnesium 1.2 mg/dL (1.6-2.6) L 12/08/16 04:55 Urine Creatinine 258 mg/dL 12/04/16 18:45 Urine Sodium 21.0 mEq/L 12/04/16 18:45 Consult Discharge Plan - Plan [facility]errals: [facility] [Primary Care Provider] -
[2016-12-09 06:11] LABS: Basophils % 0.5 %; Eosinophils # 0.2 K/mcL (0.0-0.6); Eosinophils % 2.8 %; Hematocrit 39.4 % (37.5-50.1); Hemoglobin 13.1 g/dL (12.9-16.9); Immature Granulocytes % 0.5 % (0-4); Lymphocytes # 2.1 K/mcL (0.6-4.6); Lymphocytes % 24.5 %; Mean Corpuscular HGB Conc 33.2 g/dL (31.6-35.5); Mean Corpuscular Hemoglobin 30.9 pg (28.0-33.3); Mean Corpuscular Volume 92.9 fL (83.0-100.0); Mean Platelet Volume 9.7 fL (9.4-12.4); Neutrophils # 5.1 K/mcL (1.6-8.9); Platelet Count 187 K/mcL (140-400); Red Blood Count 4.24 M/mcL (4.19-5.50); Red Cell Distribution Width 12.9 % (11.5-14.5); Segmented Neutrophils % 59.7 %
[2016-12-09 06:16] LABS: Calcium 7.5 mg/dL (8.6-10.8); Magnesium 1.1 mg/dL (1.6-2.6)
[2016-12-09] MEDS: Artificial Tears SOLN 15 ML BOTTLE OP SCH ×3 (08:15→21:20)
[2016-12-09] MEDS: Aspirin Enteric Coated 81 MG Tablet PO SCH (08:16)
[2016-12-09] MEDS: Insulin DETEMIR 100 UNIT/ML X5UNITS SQ SCH (08:16)
[2016-12-09] MEDS: Insulin LISPRO 300 UNITS/3 ML VIAL SQ SCH ×7 (08:17→21:19)
[2016-12-09] MEDS: Magnesium Sulfate 1 GM in D5% in Water 100 ML IVPB SCH ×3 (09:19→15:32)
[2016-12-09] MEDS: *HR* Heparin 5,000 UNIT/ML VIAL SQ SCH ×2 (09:24→21:20)
--- NOTE | 2016-12-09 10:08 | Nephrology Progress Note ---
Date of Encounter: 12/09/16 Time of Encounter: 10:08 - Assessment and Plan (1) KARISSA (acute kidney injury) Current Visit: Yes Status: Acute continuing to improve from the KARISSA. Agree with ongoing 1/2 NS d/t the Diarrhea. Will plan to have the HD catheter removed to Saturday. Continue to follow a renal protective strategy Thank you. (2) Generalized weakness Current Visit: Yes Status: Acute As per primary (3) Hyperkalemia Current Visit: Yes Status: Resolved Resolved (4) HTN (hypertension) Current Visit: Yes Status: Chronic Hx of chronic hypertension, improving Qualifiers: Hypertension type: essential hypertension Qualified Code(s): I10 - Essential (primary) hypertension Subjective Principal diagnosis: KARISSA Interval history: Pt was s/e earlier today on 2A. He reported developing some N/D with diminished appetite. Objective - Vital Signs Vital signs: Vital Signs Temp Pulse Resp BP Pulse Ox 12/09/16 07:07 97.4 F L 78 16 145/76 97 12/09/16 05:55 98.2 F 87 16 112/64 94 12/08/16 16:21 98.3 F 87 16 148/71 94 12/08/16 10:29 98.8 F 87 18 131/66 90 Intake and Output 12/08/16 12/09/16 12/09/16 23:59 07:59 15:59 Intake Total 1340 / 1340 1000 / 1000 0 / 0 Output Total 1600 / 1600 950 / 950 Balance -260 / -260 50 / 50 0 / 0 Intake: IV Fluids 1000 / 1000 1000 / 1000 0.45% Sodium Chloride 1000 / 1000 1000 / 1000 1000 Ml 1000 Ml 1,000 ML @ 125 mls/hr IVC .Q8H [facility] Rx#:[id number] Oral 340 / 340 0 / 0 0 / 0 Output: Catheter 1600 / 1600 950 / 950 Other: Meal Breakfast Percent of Meal Consumed 0% Stool Size Moderate Moderate Moderate Stool Consistency liquid loose formed liquid Stool Characteristics Normal for Patient Stool Color Brown Brown Brown # Bowel Movements 1 1 2 Blood Glucose* 131 131 - General Appearance Exam: General appearance: Present: well-developed, fatigue EENT: Present: ATNC, PERRL, mucous membranes moist Neck: Present: supple Respiratory: Present: clear Cardiology: Present: edema, regular rate, normal S1, normal S2 Dialysis Vascular Access: Venous Catheter ([facility] c/d/i) Gastrointestinal: Present: normoactive bowel sounds, no tenderness, no guarding , obese Integumentary: Present: no rash, warm and dry Neurologic: Present: no focal deficit, no asterixis, alert and oriented x3 Musculoskeletal: Present: no erythema, no cyanosis, no clubbing Psychiatric: Present: mood/affect appropriate, cooperative - Lab 12/09/16 05:55 12/09/16 05:55 Most recent lab results Calcium 7.5 mg/dL (8.6-10.8) L 12/09/16 05:55 Phosphorus 2.0 mg/dL (2.3-4.7) L 12/09/16 05:55 Magnesium 1.1 mg/dL (1.6-2.6) L 12/09/16 05:55 Urine Creatinine 258 mg/dL 12/04/16 18:45 Urine Sodium 21.0 mEq/L 12/04/16 18:45 Consult Discharge Plan - Plan Referrals: [facility] [Primary Care Provider] -
--- NOTE | 2016-12-09 11:40 | Internal Med Progress Note ---
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 BP improved and urine output improving will continue to closely monitor Renal function improving Qualifiers: Acute renal failure type: unspecified Qualified Code(s): N17.9 - Acute kidney failure, unspecified (2) Hyperkalemia Current Visit: Yes Status: Resolved (3) Syncope Current Visit: Yes Status: Resolved Qualifiers: Syncope type: unspecified Qualified Code(s): R55 - Syncope and collapse (4) Hypotension Current Visit: Yes Status: Resolved Assessment and plan: BP better controlled with home dose of atenolol continue home dose of Atenolol continue to hold lasix and lisinopril given renal function will closely monitor BP Qualifiers: Hypotension type: unspecified hypotension type Qualified Code(s): I95.9 - Hypotension, unspecified (5) DVT prophylaxis Current Visit: Yes Status: Acute Assessment and plan: Heparin SQ (6) Diabetes Current Visit: Yes Status: Chronic Assessment and plan: continue sliding scale insulin algorithm BG better controlled continue Levemir 12units SQ qdaily monitor FS and BG ADA diet Extensive diabetic education provided and the need to be compliant with diet and therapy given his poorly controlled DM Zofran 4mg IV q6h prn n/v Qualifiers: Diabetes mellitus type: type 2 Diabetes mellitus complication status: with unspecified complications 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 Qualified Code(s): E11.8 - Type 2 diabetes mellitus with unspecified complications; Z79.4 - longterm (current) use of insulin (7) HLD (hyperlipidemia) Current Visit: Yes Status: Chronic Assessment and plan: continue statin therapy Qualifiers: Hyperlipidemia type: pure hypercholesterolemia Qualified Code(s): E78.00 - Pure hypercholesterolemia, unspecified; E78.0 - Pure hypercholesterolemia (8) Morbid obesity with BMI of 45.0-49.9, adult Current Visit: Yes Status: Chronic (9) Electrolyte abnormality Current Visit: Yes Status: Acute Assessment and plan: Hypomagnesemia Mg supplemented continue to monitor electrolytes and replace as needed (10) Diarrhea Current Visit: Yes Status: Acute Assessment and plan: will continue IV fluids obtain stool studies for C-diff, if positive, will start Metronidazole, if negative, will give Imodium prn will closely monitor electrolytes and replace as needed Qualifiers: Diarrhea type: unspecified type Qualified Code(s): R19.7 - Diarrhea, unspecified - Subjective Interval history: Pt seen and examined with present at bedside. Reports of feeling fatigued and has had multiple loose bowel movements. Consistent hypomagnesemia despite replacement, which is likely secondary to the diarrhea. Denies nausea, vomiting , abd pain, just states of feeling weak. - Constitutional Vitals: Temp Pulse Resp BP Pulse Ox 98.9 F 84 18 150/83 97 12/09/16 11:26 12/09/16 11:26 12/09/16 11:26 12/09/16 11:26 12/09/16 11:26 General appearance: Present: cooperative, A&O X 3, morbidly obese, no acute distress, answers questions appropriately - Head Head exam: Present: atraumatic, normocephalic - Eye Eye exam: Present: conjuntiva pink, sclera anicteric - Respiratory Respiratory exam: Present: CTAB. Absent: accessory muscle use, rales, rhonchi, wheezes - Cardiovascular Cardiovascular exam: Present: RRR, +S1, +S2. Absent: diastolic murmur, gallop, rubs, systolic murmur - GI/Abdominal GI/Abdominal exam: Present: normal bowel sounds, soft, no peritoneal signs. Absent: distended, tenderness - Extremities Exam Extremities exam: Present: pedal edema, warm, radial pulses palpable and symmetrical. Absent: calf tenderness - Neurological Exam Neurological exam: Present: alert - Psychiatric Psychiatric exam: Present: normal affect, normal mood Internal Medicine: Result - Labs CBC & Chem 7: 12/09/16 05:55 12/09/16 05:55 Labs: Short CBC 12/09/16 Range/Units 05:55 WBC 8.5 (4.3-11.1) K/mcL Hgb 13.1 (12.9-16.9) g/dL Hct 39.4 (37.5-50.1) % Plt Count 187 (140-400) K/mcL Neutrophils # 5.1 (1.6-8.9) K/mcL BMP 12/09/16 05:55 Sodium 141 Potassium 4.0 Chloride 109 Carbon Dioxide 23 BUN 20 Creatinine 2.05 H Glucose 138 H Calcium 7.5 L - ABG Interpretation ABG results: PT/INR, D-dimer PT 11.9 Seconds (9.4-12.1) 12/06/16 14:40 Consult Discharge Plan - Plan Referrals: [facility] [Primary Care Provider] -
[2016-12-09] MEDS: Ondansetron 4 MG/2 ML VIAL IVP PRN (15:38)
[2016-12-09] MEDS: Magnesium Oxide 400 MG TABLET PO SCH (21:20)
[2016-12-10] MEDS: Melatonin 3 MG TABLET PO PRN ×2 (01:15→21:36)
[2016-12-10 06:48] LABS: Basophils % 0.5 %; Eosinophils % 2.6 %; Hematocrit 40.6 % (37.5-50.1); Hemoglobin 13.3 g/dL (12.9-16.9); Immature Granulocytes % 0.5 % (0-4); Lymphocytes % 19.8 %; Mean Corpuscular HGB Conc 32.8 g/dL (31.6-35.5); Mean Corpuscular Hemoglobin 30.4 pg (28.0-33.3); Mean Corpuscular Volume 92.9 fL (83.0-100.0); Mean Platelet Volume 9.6 fL (9.4-12.4); Monocytes % 10.7 %; Platelet Count 212 K/mcL (140-400); Red Blood Count 4.37 M/mcL (4.19-5.50); Segmented Neutrophils % 65.9 %
[2016-12-10 06:49] LABS: Basophils # 0.1 K/mcL (0.0-0.2); Eosinophils # 0.3 K/mcL (0.0-0.6); Lymphocytes # 2.2 K/mcL (0.6-4.6); Monocytes # 1.2 K/mcL (0.0-1.3); Neutrophils # 7.2 K/mcL (1.6-8.9)
[2016-12-10 06:51] LABS: Calcium 7.8 mg/dL (8.6-10.8); Magnesium 1.1 mg/dL (1.6-2.6); Phosphorous 2.2 mg/dL (2.3-4.7); Potassium 4.1 mEq/L (3.5-4.5)
[2016-12-10 09:28] LABS: Hepatitis B Surface Antibody 0.42 mIU/mL; Hepatitis B Surface Antigen Nonreactive (Nonreactive)
[2016-12-10] MEDS: Artificial Tears SOLN 15 ML BOTTLE OP SCH ×3 (09:48→21:37)
[2016-12-10] MEDS: Aspirin Enteric Coated 81 MG Tablet PO SCH (09:48)
[2016-12-10] MEDS: Magnesium Oxide 400 MG TABLET PO SCH ×2 (09:48→21:36)
[2016-12-10] MEDS: *HR* Heparin 5,000 UNIT/ML VIAL SQ SCH ×2 (09:48→21:36)
[2016-12-10] MEDS: Magnesium Sulfate 1 GM in D5% in Water 100 ML IVPB SCH ×4 (09:49→21:32)
[2016-12-10] MEDS: Insulin LISPRO 300 UNITS/3 ML VIAL SQ SCH ×7 (09:53→21:37)
[2016-12-10] MEDS: Insulin DETEMIR 100 UNIT/ML X5UNITS SQ SCH (09:53)
--- NOTE | 2016-12-10 11:08 | Nephrology Progress Note ---
Date of Encounter: 12/10/16 Time of Encounter: 09:30 - Assessment and Plan (1) KARISSA (acute kidney injury) Status: Acute continuing to improve from the KARISSA. To remove the HD catheter today Continue to follow a renal protective strategy Thank you. (2) Generalized weakness Status: Acute As per primary (3) Hyperkalemia Status: Resolved Resolved (4) HTN (hypertension) Status: Chronic Hx of chronic hypertension, improving Qualifiers: Hypertension type: essential hypertension Qualified Code(s): I10 - Essential (primary) hypertension Subjective Principal diagnosis: KARISSA Interval history: Pt was s/e earlier today on 2A. He reported developing some N/D with diminished appetite (i.e. no uremic symptoms). He did not affirm any new major complaints. Objective - Vital Signs Vital signs: Vital Signs Temp Pulse Resp BP Pulse Ox 12/10/16 07:56 98.0 F 86 19 130/86 97 12/09/16 23:47 98.7 F 81 17 163/52 95 12/09/16 20:15 98.4 F 81 17 163/66 95 12/09/16 16:34 97.6 F 88 16 153/78 96 12/09/16 11:26 98.9 F 84 18 150/83 97 Intake and Output 12/09/16 12/10/16 12/10/16 23:59 07:59 15:59 Intake Total 0 / 0 1000 / 1000 Output Total 1000 / 1000 Balance -1000 / -1000 1000 / 1000 Intake: IV Fluids 1000 / 1000 0.45% Sodium Chloride 1000 / 1000 1000 Ml 1000 Ml 1,000 ML @ 125 mls/hr IVC .Q8H [facility] Rx#:[id number] Oral 0 / 0 Output: Catheter 1000 / 1000 Other: Meal Dinner Percent of Meal Consumed 0% Stool Size Small Stool Consistency liquid Stool Color Green # Bowel Movements 2 Weight 177 kg Blood Glucose* 155 155 Patient Weight 12/10/16 23:59 Weight 177 kg - General Appearance Exam: General appearance: Present: well-developed, fatigue EENT: Present: ATNC, PERRL, mucous membranes moist Neck: Present: supple Respiratory: Present: clear Cardiology: Present: edema, regular rate, normal S1, normal S2 Dialysis Vascular Access: Venous Catheter ([facility] c/d/i) Gastrointestinal: Present: normoactive bowel sounds, no tenderness, no guarding , obese Integumentary: Present: no rash, warm and dry Neurologic: Present: no focal deficit, no asterixis, alert and oriented x3 Musculoskeletal: Present: no erythema, no cyanosis, no clubbing Psychiatric: Present: mood/affect appropriate, cooperative - Lab 12/11/16 04:48 12/11/16 04:48 Most recent lab results Calcium 7.8 mg/dL (8.6-10.8) L 12/10/16 06:20 Phosphorus 2.2 mg/dL (2.3-4.7) L 12/10/16 06:20 Magnesium 1.1 mg/dL (1.6-2.6) L 12/10/16 06:20 Urine Creatinine 258 mg/dL 12/04/16 18:45 Urine Sodium 21.0 mEq/L 12/04/16 18:45 Consult Discharge Plan - Plan Instructions: Acute Kidney Injury (DC) Additional Instructions: Discontinue Metformin until appointment with Renal and PCP. Referrals: Miko Hardy MD [Partnered Physician] - (web request sent and office will call patient with an appointment date and time) [facility] [Primary Care Provider[facility] - 12/18/16 11:15 am
[2016-12-10] MEDS: Ondansetron 4 MG/2 ML VIAL IVP PRN (12:12)
[2016-12-10] MEDS ORDERED: *HR* Promethazine 25 MG/ML VIAL IVP PRN (12:43)
--- NOTE | 2016-12-10 12:47 | Internal Med Progress Note ---
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 BP improved and urine output improving will continue to closely monitor Renal function improving Qualifiers: Acute renal failure type: unspecified Qualified Code(s): N17.9 - Acute kidney failure, unspecified (2) Hyperkalemia Current Visit: Yes Status: Resolved (3) Syncope Current Visit: Yes Status: Resolved Qualifiers: Syncope type: unspecified Qualified Code(s): R55 - Syncope and collapse (4) Hypotension Current Visit: Yes Status: Resolved Assessment and plan: BP better controlled with home dose of atenolol continue home dose of Atenolol continue to hold lasix and lisinopril given renal function will closely monitor BP Qualifiers: Hypotension type: unspecified hypotension type Qualified Code(s): I95.9 - Hypotension, unspecified (5) DVT prophylaxis Current Visit: Yes Status: Acute Assessment and plan: Heparin SQ (6) Diabetes Current Visit: Yes Status: Chronic Assessment and plan: continue sliding scale insulin algorithm BG better controlled continue Levemir 12units SQ qdaily monitor FS and BG ADA diet Extensive diabetic education provided and the need to be compliant with diet and therapy given his poorly controlled DM Zofran 4mg IV q6h prn n/v, added Phenergan 12.5mg IV q6h prn nausea refractory to Zofran Qualifiers: Diabetes mellitus type: type 2 Diabetes mellitus complication status: with unspecified complications Diabetes mellitus usp insulin use: with usp use Qualified Code(s): E11.8 - Type 2 diabetes mellitus with unspecified complications; Z79.4 - [facility] (current) use of insulin (7) HLD (hyperlipidemia) Current Visit: Yes Status: Chronic Assessment and plan: continue statin therapy Qualifiers: Hyperlipidemia type: pure hypercholesterolemia Qualified Code(s): E78.00 - Pure hypercholesterolemia, unspecified; E78.0 - Pure hypercholesterolemia (8) Morbid obesity with BMI of 45.0-49.9, adult Current Visit: Yes Status: Chronic (9) Electrolyte abnormality Current Visit: Yes Status: Acute Assessment and plan: Hypomagnesemia Mg supplemented continue to monitor electrolytes and replace as needed (10) Diarrhea Current Visit: Yes Status: Acute Assessment and plan: will continue IV fluids Resolved Imdoium prn diarrhea cdiff studies negative Qualifiers: Diarrhea type: unspecified type Qualified Code(s): R19.7 - Diarrhea, unspecified - Subjective Interval history: Pt seen and examined with present at bedside. Resting in bed and reports of feeling better compared to the previous day. Tolerating PO Intake better. states he still feels very nauseous and is too sensitive to the surrounding smells today which is worsening his nausea. NO overnight events reported. - Constitutional Vitals: Temp Pulse Resp BP Pulse Ox 98.6 F 84 16 149/98 97 12/10/16 11:01 12/10/16 11:01 12/10/16 11:01 12/10/16 11:01 12/10/16 11:01 General appearance: Present: cooperative, A&O X 3, morbidly obese, no acute distress, answers questions appropriately - Head Head exam: Present: atraumatic, normocephalic - Eye Eye exam: Present: conjuntiva pink, sclera anicteric - Respiratory Respiratory exam: Absent: respiratory distress, wheezes - Cardiovascular Cardiovascular exam: Present: RRR, +S1, +S2. Absent: diastolic murmur, gallop, rubs, systolic murmur - GI/Abdominal GI/Abdominal exam: Present: normal bowel sounds, soft, no peritoneal signs. Absent: distended, tenderness - Extremities Exam Extremities exam: Present: warm, radial pulses palpable and symmetrical. Absent : calf tenderness, cyanotic - Neurological Exam Neurological exam: Present: alert, oriented X3 - Psychiatric Psychiatric exam: Present: normal affect, normal mood Internal Medicine: Result - Labs CBC & Chem 7: 12/10/16 06:20 12/10/16 06:20 Labs: Short CBC 12/10/16 Range/Units 06:20 WBC 11.0 (4.3-11.1) K/mcL Hgb 13.3 (12.9-16.9) g/dL Hct 40.6 (37.5-50.1) % Plt Count 212 (140-400) K/mcL Neutrophils # 7.2 (1.6-8.9) K/mcL BMP 12/10/16 06:20 Sodium 139 Potassium 4.1 Chloride 110 H Carbon Dioxide 21 BUN 14 Creatinine 1.57 H Glucose 155 H Calcium 7.8 L - ABG Interpretation ABG results: PT/INR, D-dimer PT 11.9 Seconds (9.4-12.1) 12/06/16 14:40 Consult Discharge Plan - Plan [facility]errals: [facility] [Primary Care Provider] -
[2016-12-11 05:13] LABS: Basophils # 0.1 K/mcL (0.0-0.2); Basophils % 0.9 %; Eosinophils # 0.5 K/mcL (0.0-0.6); Eosinophils % 3.9 %; Hematocrit 38.9 % (37.5-50.1); Hemoglobin 13.4 g/dL (12.9-16.9); Lymphocytes # 2.6 K/mcL (0.6-4.6); Lymphocytes % 22.4 %; Mean Corpuscular HGB Conc 34.4 g/dL (31.6-35.5); Mean Corpuscular Hemoglobin 31.7 pg (28.0-33.3); Mean Platelet Volume 9.5 fL (9.4-12.4); Monocytes # 1.3 K/mcL (0.0-1.3); Monocytes % 11.3 %; Platelet Count 212 K/mcL (140-400); Red Blood Count 4.23 M/mcL (4.19-5.50); Red Cell Distribution Width 13.1 % (11.5-14.5); Segmented Neutrophils % 60.5 %
[2016-12-11 05:27] LABS: BUN/Creatinine Ratio 8 (6-26); Blood Urea Nitrogen 12 mg/dL (8-26); Calcium 8.2 mg/dL (8.6-10.8); Carbon Dioxide 21 mEq/L (19-29); Chloride 110 mEq/L (98-109); Glucose 162 mg/dL (70-99); Magnesium 1.6 mg/dL (1.6-2.6); Osmolality,Calculated 289 (280-300); Phosphorous 2.5 mg/dL (2.3-4.7); Potassium 4.1 mEq/L (3.5-4.5); Sodium 138 mEq/L (136-145); eGFR For African Americans > 60 (> 60); eGFR For Non-African Americans 52 (> 60)
[2016-12-11] MEDS: Magnesium Oxide 400 MG TABLET PO SCH (07:32)
[2016-12-11] MEDS: Aspirin Enteric Coated 81 MG Tablet PO SCH (07:32)
[2016-12-11] MEDS: Insulin LISPRO 300 UNITS/3 ML VIAL SQ SCH ×2 (07:59→09:14)
--- NOTE | 2016-12-11 08:08 | Event Note ---
Date of Encounter: 12/11/16 Time of Encounter: 08:06 Nephrology Chart Review The pt continues to exhibit improved renal function. His dialysis catheter was ordered to be removed yesterday. I will sign-off at this time, but please feel free to call or page with any renal questions. My colleague Dr. العراقي first established Nephro care, so I recommend the pt follow-up with her in about 4-6 weeks. Thank you for having consulted the [facility] group.
[2016-12-11] MEDS: *HR* Heparin 5,000 UNIT/ML VIAL SQ SCH (09:19)
[2016-12-11] MEDS: Artificial Tears SOLN 15 ML BOTTLE OP SCH (09:24)
[2016-12-11] MEDS: Insulin DETEMIR 100 UNIT/ML X5UNITS SQ SCH (09:33)
--- NOTE | 2016-12-11 09:34 | Discharge Summary ---
<Volodymyr Linton - Last Filed: 12/11/16 13:17> Date of Encounter: 12/11/16 Time of Encounter: 09:27 - Discharge Diagnosis (1) Acute renal failure Priority: Primary Status: Acute Qualifiers: Acute renal failure type: unspecified Qualified Code(s): N17.9 - Acute kidney failure, unspecified (2) Syncope Priority: Secondary Status: Resolved Qualifiers: Syncope type: unspecified Qualified Code(s): R55 - Syncope and collapse (3) Hypotension Priority: Secondary Status: Resolved Qualifiers: Hypotension type: unspecified hypotension type Qualified Code(s): I95.9 - Hypotension, unspecified (4) DVT prophylaxis Priority: Secondary Status: Acute (5) Diabetes Priority: Secondary Status: Chronic Qualifiers: Diabetes mellitus type: type 2 Diabetes mellitus complication status: with unspecified complications Diabetes mellitus ferry terminal supervisor insulin use: with senior living use Qualified Code(s): E11.8 - Type 2 diabetes mellitus with unspecified complications; Z79.4 - terminologist (current) use of insulin (6) HTN (hypertension) Priority: Secondary Status: Chronic Qualifiers: Hypertension type: essential hypertension Qualified Code(s): I10 - Essential (primary) hypertension (7) HLD (hyperlipidemia) Priority: Secondary Status: Chronic Qualifiers: Hyperlipidemia type: pure hypercholesterolemia Qualified Code(s): E78.00 - Pure hypercholesterolemia, unspecified; E78.0 - Pure hypercholesterolemia (8) Hyperkalemia Priority: Secondary Status: Resolved - Discharge Medications Home Medications: Amitriptyline [Elavil] 150 mg PO HS 12/04/16 [History] Aspirin [Lo-Dose Aspirin EC] 81 mg PO DAILY 12/04/16 [History] Atenolol [Tenormin] 75 mg PO DAILY 12/04/16 [History] Atorvastatin Calcium [Lipitor] 80 mg PO HS 12/04/16 [History] Carboxymethylcellulose Sodium [Refresh Tears] 1 drop OP TID 12/04/16 [History] Furosemide [Lasix] 20 mg PO BID 12/04/16 [History] Gabapentin [Neurontin] 1,200 mg PO BID 12/04/16 [History] Insulin ASPART [NovoLOG] 10 unit SQ 1200 12/04/16 [History] Insulin ASPART [Novolog Flexpen] 16 unit SQ 0800,1700 12/04/16 [History] Lisinopril [Zestril] 10 mg PO DAILY 12/04/16 [History] Morphine Sulfate SR (12 HR) [MS Contin] 1 tab PO Q8HR 12/04/16 [History] Ranitidine HCl [Acid Irrigation Technician] 150 mg PO BID 12/04/16 [History] Allergies/Adverse Reactions: 3 Allergy/AdvReac Type Severity Reaction Status Date / Time Amoxicillin Allergy Anaphylaxis Verified 12/04/16 13:18 Erythromycin Base Allergy Anaphylaxis Verified 12/04/16 13:18 Penicillins Allergy Anaphylaxis Verified 12/04/16 13:18 pregabalin Allergy Anaphylaxis Verified 12/04/16 13:18 Date of admission: 12/04/16 19:21 [facility] care physician: [facility] Consults: 12/05/16 16:06 Consult to Interventional Radiology [CONS] Stat Consulting Provider: Radiology Interventional Cols Reason for Consult: PLACEMENT OF TEMP HD LINE Time Notified: 16:09 Call Completed: Yes 12/06/16 11:56 Consult to Floor Worker Well Service ([employer]) [CONS] Routine Reason For Exam: Reason for SW Consult: Help with FMLA 12/07/16 23:16 Consult to Occupational Therapy [CONS] Routine Comment: Evaluate, develop and implement POC Reason for Consult: deconditioning, bedrest since 12/04 Consult to Physical Therapy [CONS] Routine Comment: Evaluate, develop and implement POC Reason for Consult: deconditioning, bedrest since 12/04 - Patient Status Disposition: Home, Self-Care Condition: Fair Functional capacity at discharge: independent ambulation Overall status at discharge: patient is progressing back to baseline - Discharge Instructions Instructions: Acute Kidney Injury (DC) Follow Up With: Miko Hardy MD [Partnered Physician] - (web request sent and office will call patient with an appointment date and time) [facility],PC[facility] [Primary Care Provider] - 12/18/16 11:15 am Additional Instructions: Discontinue Metformin until appointment with Renal and PCP. - Diet and Activity Activity: increase activity as tolerated Diet: diabetic diet, low salt diet Interval History: Mr Barriga is a 56 year old M who was admitted due to general weakness and found to have Acute renal failure w/ hyperkalemia, hypmg, hypotension and hx w/ Diabetes, HLD, Morbid Obesity. On admission Cr. 9.63, progressively trended downward during hospitalization. Brain MRI, Retroperitoneum U/S, Carotid Duplex R normal, L minimal CXR found no acute impressions. Patient was bolused with fluids. Owens was placed. Nephrology followed and considered highly suspicious for pre-renal azotemia. IR placed temp HD catheter RIJ for access. LISW was given on 12/05. Perm Cath removed on 12/10. Patient is progressing to baseline and will follow up with Renal Outpatient. Hospital course: Mr. Barriga is a 56 year old male - Time Spent with Patient Total time spent providing and/or coordinating discharge services: - Constitutional Vitals: Temp Pulse Resp BP Pulse Ox 98.4 F 84 17 153/94 96 12/11/16 06:42 12/11/16 06:42 12/11/16 06:42 12/11/16 06:42 12/11/16 06:42 General appearance: Present: cooperative, A&O X 3, morbidly obese, no acute distress, answers questions appropriately - Head Head exam: Present: atraumatic, normocephalic - Respiratory Respiratory exam: Present: CTAB. Absent: accessory muscle use, rales, rhonchi, wheezes - Cardiovascular Cardiovascular exam: Present: RRR, +S1, +S2. Absent: diastolic murmur, gallop, rubs, systolic murmur - GI/Abdominal GI/Abdominal exam: Present: normal bowel sounds, soft, no peritoneal signs. Absent: distended, tenderness <Hilda,Renaldo P - Last Filed: 12/11/16 18:30> Date of Encounter: 12/11/16 Date of admission: 12/04/16 19:21 Primary care physician: [facility]CP [facility] Consults: 12/05/16 16:06 Consult to Interventional Radiology [CONS] Stat Consulting Provider: Radiology Interventional Cols Reason for Consult: PLACEMENT OF TEMP HD LINE Time Notified: 16:09 Call Completed: Yes 12/06/16 11:56 Consult to Floor Worker Well Service ([employer]) [CONS] Routine Reason For Exam: Reason for SW Consult: Help with FMLA 12/07/16 23:16 Consult to Occupational Therapy [CONS] Routine Comment: Evaluate, develop and implement POC Reason for Consult: deconditioning, bedrest since 12/04 Consult to Physical Therapy [CONS] Routine Comment: Evaluate, develop and implement POC Reason for Consult: deconditioning, bedrest since 12/04 Hospital course: Mr. Barriga is a 56 year old male - Time Spent with Patient Total time spent providing and/or coordinating discharge services: - Constitutional Vitals: Temp Pulse Resp BP Pulse Ox 98.5 F 68 17 143/75 98 12/11/16 10:35 12/11/16 10:35 12/11/16 10:35 12/11/16 10:35 12/11/16 10:35 - Attending Attestation I examined this patient and my medical decision-making was reviewed with the Resident Physician. I agree with the documented findings, disposition and treatment plan as described except to the extent set forth below.
[2016-12-11 10:41] VITALS: BP 143/75
== END 2016-12-11 11:31 | disposition home or self-care (01) | DRG 683 ==
LOC: EMEROO 12:49 → SUATTDRO 19:21 → 2NENU 19:21 → ICNU 12-05 19:38 → 2ANU 12-07 19:14
PROVIDERS: ADMIT Nurse Practitioner Family; ATTEND Internal Medicine

== ENCOUNTER 2021-12-16 13:47 | Inpatient (IN) ==
[2021-12-16] MEDS ORDERED: Naloxone 0.4 MG/ML INJ IVP PRN (15:08)
[2021-12-16] MEDS ORDERED: Ondansetron ODT 4 MG TAB.RAPDIS SL PRN (15:08)
[2021-12-16] MEDS ORDERED: D5% in Water 1,000 ML IVC PRN (15:09)
[2021-12-16] MEDS ORDERED: Dextrose Gel 15 GM/37.5 ML TUBE PO PRN ×2 (15:09)
[2021-12-16] MEDS ORDERED: *HR* Dextrose 50 % in Water (Syg) 50 ML SYRINGE IVP PRN (15:09)
[2021-12-16] MEDS ORDERED: Furosemide 20 MG TABLET PO PRN (15:21)
[2021-12-16] MEDS: Insulin LISPRO 300 UNITS/3 ML VIAL SUBQ SCH ×2 (16:40→21:49)
[2021-12-16] MEDS ORDERED: Vancomycin 2,000 MG/520 ML IV.SOLN IVPB ONE (17:00)
[2021-12-16] MEDS ORDERED: Morphine Sulfate ER (12 HR) 15 MG TABLET.ER PO SCH (21:45)
[2021-12-16] MEDS: Gabapentin 300 MG CAPSULE PO SCH (21:48)
[2021-12-16] MEDS: Famotidine 20 MG TABLET PO SCH (21:48)
[2021-12-16] MEDS: *HR* Heparin 5,000 UNIT/ML VIAL SQ SCH (21:49)
[2021-12-16] MEDS: Silver Sulfadiazine 50 GM TUBE TP SCH (22:13)
[2021-12-16] MEDS: Morphine Sulfate ER (12 HR) 15 MG TABLET.ER PO SCH (22:13)
[2021-12-17 02:06] LABS: Basophils % 0.6 %; Eosinophils # 0.3 K/mcL (0.0-0.6); Eosinophils % 4.3 %; Hematocrit 45.8 % (37.5-50.1); Hemoglobin 14.9 g/dL (12.9-16.9); Immature Granulocytes % 0.3 % (0-4); Lymphocytes # 2.3 K/mcL (0.6-4.6); Lymphocytes % 32.5 %; Mean Corpuscular HGB Conc 32.5 g/dL (31.6-35.5); Mean Corpuscular Hemoglobin 31.6 pg (28.0-33.3); Mean Platelet Volume 10.2 fL (9.4-12.4); Monocytes # 0.9 K/mcL (0.0-1.3); Monocytes % 13.2 %; Neutrophils # 3.4 K/mcL (1.6-8.9); Platelet Count 193 K/mcL (140-400); Red Blood Count 4.72 M/mcL (4.19-5.50); Red Cell Distribution Width 13.2 % (11.5-14.5); Segmented Neutrophils % 49.1 %
[2021-12-17 02:27] LABS: Calcium 8.5 mg/dL (8.6-10.3); Magnesium 1.8 mg/dL (1.6-2.6)
[2021-12-17] MEDS: Morphine Sulfate ER (12 HR) 15 MG TABLET.ER PO SCH ×3 (06:10→21:19)
[2021-12-17] MEDS: Vancomycin 1,750 MG/517.5 ML IV.SOLN IVPB SCH ×2 (06:11→17:31)
[2021-12-17] MEDS: *HR* Heparin 5,000 UNIT/ML VIAL SQ SCH ×3 (06:11→21:21)
[2021-12-17] MEDS: Insulin LISPRO 300 UNITS/3 ML VIAL SUBQ SCH ×4 (10:24→21:20)
[2021-12-17] MEDS: lisinopriL 5 MG TABLET PO SCH (10:26)
[2021-12-17] MEDS: Famotidine 20 MG TABLET PO SCH ×2 (10:27→21:19)
[2021-12-17] MEDS: Aspirin 81 MG TAB.CHEW PO SCH (10:27)
[2021-12-17] MEDS: Gabapentin 300 MG CAPSULE PO SCH ×2 (10:27→21:20)
[2021-12-17] MEDS: Silver Sulfadiazine 50 GM TUBE TP SCH ×2 (12:03→21:20)
[2021-12-17] MEDS ORDERED: 0.9 % Sodium Chloride 1,000 ML IVC SCH (14:30)
[2021-12-18] MEDS: Vancomycin 1,750 MG/517.5 ML IV.SOLN IVPB SCH (05:57)
[2021-12-18] MEDS: Morphine Sulfate ER (12 HR) 15 MG TABLET.ER PO SCH ×2 (05:57→14:23)
[2021-12-18] MEDS: *HR* Heparin 5,000 UNIT/ML VIAL SQ SCH ×2 (05:57→14:23)
[2021-12-18] MEDS: lisinopriL 5 MG TABLET PO SCH (08:40)
[2021-12-18] MEDS: Gabapentin 300 MG CAPSULE PO SCH (08:40)
[2021-12-18] MEDS: Aspirin 81 MG TAB.CHEW PO SCH (08:40)
[2021-12-18] MEDS: Famotidine 20 MG TABLET PO SCH (08:40)
[2021-12-18] MEDS: Insulin LISPRO 300 UNITS/3 ML VIAL SUBQ SCH ×2 (08:41→14:15)
[2021-12-18 11:30] VITALS: BP 119/69; PULSE 82; TEMP 98; O2SAT 98
[2021-12-18] MEDS: Silver Sulfadiazine 50 GM TUBE TP SCH (14:15)
== END 2021-12-18 15:40 | disposition home or self-care (01) | DRG 603 ==
LOC: 4WAOSI → SUATTDRO 14:42
PROVIDERS: ADMIT Pharmacist; ATTEND Family Medicine